=== PATIENT | female | born 1995 | race Two or more races ===

== ENCOUNTER 2024-09-28 13:36 | Emergency (ER) | payer MEDICAID, SELFPAY ==
[2024-09-28 13:37] VITALS: BMI 27.1
[2024-09-28 13:45] VITALS: BP 128/80; PULSE 149; RESP 16; TEMP 37.2; O2SAT 97
--- NOTE | 2024-09-28 13:47 | XR_ITS ---
Examination: CT soft tissue neck, with intravenous contrast. 2-D coronal reconstructions. 2-D sagittal reconstructions. Date and time of exam :September 28, 2024 at 1754 hrs. Indications: Difficulty swallowing with sore throat beginning 2 days ago. CTDI: vol (mGy):9.33 DLP: (mGycm):228 Technique: 1.25 mm axial sections of the neck of the obtained. Coronal and sagittal reconstructions have been obtained. Intravenous contrast administered 50 cc Isovue-370. Low dose protocols were performed. One or more of the following dose reduction techniques were used; automated exposure control, adjustment of the mA and/or KV according to patient size, use of iterative reconstruction technique. Findings: Bilateral significant soft tissue tonsillar prominence Early abscesses, 6 mm axial image 24 and 5 mm axial image 25 in the right tonsil The enlarged tonsils impinge upon the oropharyngeal airways Bilateral likely reactive carotid triangle lymph nodes, on the right side 26 mm, on the left side 21 mm, follow-up imaging suggested Enlarged thyroid lobes mildly impinging upon the trachea Normal epiglottis Impression: Bilateral significant soft tissue tonsillar enlargement impinging upon the oropharyngeal airway Small early right tonsillar abscesses, 6 mm, 5 mm as above
--- NOTE | 2024-09-28 13:48 | PD.EDRME ---
Rapid Medical Screening Exam E Arrival date/time: 09/28/24 13:36 29-year-old female with no known medical history presents to the emergency room with a chief complaint of a muffled voice, sore throat, congestion, swollen neck x 2 days. I have greeted and performed a focused initial assessment of this patient. A comprehensive ED assessment and evaluation of the patient, analysis of all test results, and completion of the medical decision making process will be conducted by additional ED providers. Chief Complaint: Dental/Oral/Throat Time Seen by Provider: 09/28/24 19:23 Vital signs: Vital Signs Temperature 98.9 F 09/28/24 13:45 Pulse Rate 149 H 09/28/24 13:45 Respiratory Rate 16 09/28/24 13:45 Blood Pressure 128/80 09/28/24 13:45 Pulse Oximetry (%) 97 09/28/24 13:45 Oxygen Delivery Method Room Air 09/28/24 13:45 Vital signs reviewed by provider: Yes
[2024-09-28 14:25] LABS: Lactate (Lactic Acid) 1.8 mMol/L (0.4-2.0)
[2024-09-28 14:30] LABS: Basophils % (Auto) 0 % (0-2.5); Eosinophils # (Auto) 0.1 Thou/mm3 (0.0-0.5); Eosinophils % (Auto) 1 % (0-10); Hematocrit 36.6 % (36.0-46.0); Hemoglobin 11.7 g/dL (12.0-16.0); Immature Granulocytes % (Auto) 0 % (0-0); Immature Granulocytes Auto 0.02 Thou/mm3 (0.00-0.00); Lymphocytes # (Auto) 2.8 Thou/mm3 (1.0-4.8); Lymphocytes % (Auto) 29 % (10-50); Mean Corpuscular Hemoglobin 25.2 pg (25.0-35.0); Mean Corpuscular Volume 79 fL (80-100); Monocytes # (Auto) 0.8 Thou/mm3 (0.0-0.8); Monocytes % (Auto) 9 % (0-12); Neutrophils % (Auto) 61 % (37-80); Nucleated Red Blood Cell % 0 /100 WBC (0); Platelet Count 347 Thou/mm3 (140-440); RDW Standard Deviation 35.4 fL (36.4-46.3); Red Blood Count 4.65 Miln/mm3 (4.00-5.20); White Blood Count 9.8 Thou/mm3 (3.6-11.0)
[2024-09-28 14:34] LABS: Strep A Rapid Negative (Negative)
[2024-09-28 15:01] LABS: HCG Qualitative,Urine Negative
[2024-09-28 15:05] LABS: Alanine Aminotransferase 22 U/L (10-49); Albumin, Serum 4.4 gm/dL (3.5-5.0); Albumin/Globulin Ratio 1.2 (1.2-2.2); Alkaline Phosphatase 114 U/L (46-116); Anion Gap 10 (7-16); Aspartate Amino Transferase 11 U/L (0-34); BUN/Creatinine Ratio 24 Ratio (12-20); Bilirubin,Total 0.3 mg/dL (0.3-1.2); Blood Urea Nitrogen 12 mg/dL (9-23); Calcium 9.9 mg/dL (8.3-10.6); Calcium (Corrected) 9.9 mg/dL (8.5-10.1); Carbon Dioxide 27.6 mMol/L (20.0-31.0); Chloride 104 mMol/L (98-107); Creatinine (Component) 0.5 mg/dL (0.6-1.3); Estimated Creatinine Clearance 138.9 mL/min (>60); Globulin 3.7 gm/dL (2.3-3.5); Glucose 104 mg/dL (74-106); Osmolality,Calculated 282 (275-295); Potassium 3.5 mMol/L (3.4-5.1); Procalcitonin 0.06 ng/ml (0.0-0.49); Sodium 142 mMol/L (136-145); Total Protein 8.1 gm/dL (5.7-8.2); eGFR > 60 See Note
[2024-09-28 17:14] VITALS: BP 116/75; PULSE 123; RESP 16; TEMP 36.7; O2SAT 99
[2024-09-28] MEDS: DEXAMETHASONE SOD PHOS INJ 10 MG/ML VIAL IVP (19:34)
[2024-09-28] MEDS: KETOROLAC INJ 30 MG/ML VIAL IVP (19:34)
[2024-09-28] MEDS: CLINDAMYCIN/NS 600 MG IVPB 600 MG/50 ML BAG 100 MG IV (19:38)
--- NOTE | 2024-09-28 20:03 | EDNOTE_ITS ---
ED Dental RME/HPI General Chief complaint: Dental/Oral/Throat Stated complaint: THROAT PAIN Time Seen by Provider: 09/28/24 19:23 Arrival date/time: 09/28/24 13:36 Limitations: no limitations RME / HPI RME / HPI Narrative: 09/28/24 13:36 29-year-old female with no known medical history presents to the emergency room with a chief complaint of a muffled voice, sore throat, congestion, swollen neck x 2 days. I have greeted and performed a focused initial assessment of this patient. A comprehensive ED assessment and evaluation of the patient, analysis of all test results, and completion of the medical decision making process will be conducted by additional ED providers. Dr. Parry's Main ED Evaluation: 29yo female presents to the ED for a chief complaint of a sore throat x 7 days. Patient states she has not been evaluated by anyone for this. She endorses having a muffled voice and feeling nauseous. She denies any fever, chills, cough, vomiting or any other associated symptoms. No known allergies. Patient also reports that when she was laying and sleeping that she was snoring and mother felt that she was stopped breathing and she felt her lips were slightly discolored. Related Data Home Medications ?Medication ?Instructions ?Recorded ?Confirmed desogestrel 0.15 mg-ethinyl 1 tab PO QDAY 08/08/20 08/08/20 estradiol 0.03 mg tablet (Enskyce) Allergies Allergy/AdvReac Type Severity Reaction Status Date / Time No Known Allergies Allergy Unknown Verified 09/28/24 13:39 Review of Systems Review of Systems Systems Reviewed: All systems reviewed, normal except as documented Past Medical History Past Medical History CARDIAC: Negative Cardiac Disorders or Congestive Heart Failure RESPIRATORY: Negative Chronic Obstructive Pulmonary Disease (COPD) or Asthma GENITOURINARY: Negative Renal Disease ENDOCRINE: Negative Diabetes Mellitus Type 1 or Diabetes Mellitus Type 2 HEMATOLOGIC: Negative Sickle Cell Disease Social History SMOKING STATUS: Never smoker ED Exam General Limitations: Present no limitations General appearance: Present alert, in no apparent distress and other (has a muffled voice) Head Head exam: Present atraumatic Eye Eye exam: Present normal appearance, PERRL and EOMI ENT ENT exam: Present mucous membranes moist and other (trismus, hot potato voice, right pharyngeal wall is red, uvula is midline, right tonsillar area is swollen) Neck Neck exam: Present full ROM, trachea midline, tenderness (to the right neck, no overlying erythema) and other (right external neck swelling and around the mandible area) Chest Chest inspection: Present normal inspection and symmetric chest wall rise Respiratory Respiratory exam: Present normal lung sounds bilaterally Cardiovascular Cardiovascular exam: Present regular rate, normal rhythm and normal heart sounds Abdominal Exam Abdominal exam: Present soft and normal bowel sounds Extremities Exam Extremities exam: Present normal inspection and full ROM Back Exam Back exam: Present normal inspection and full ROM Neurological Exam Neurological exam: Present alert, oriented X3 and CN II-XII intact Psychiatric Psychiatric exam: Present normal affect and normal mood Skin Skin exam: Present warm, dry, intact and normal color Course Course Course Narrative: 2127: Spoke with [facility] transfer [place], who declines the patient for transfer due to not having ENT available. 2305: Spoke with Dr. Coleman from [facility], who accepts the patient for transfer. Patient is agreeable to be transferred. Quality Measures none Orders Category Date Time Status CT Screening NOW Care 09/28/24 13:48 Active IV [Insert IV] NOW Care 09/28/24 19:09 Active Miscellaneous Nursing Order X1 Care 09/28/24 22:[address] soft tissue neck w con Stat Exams 09/28/24 13:47 Completed Blood Culture (Lab) Stat Lab 09/28/24 14:05 Received CBC Stat Lab 09/28/24 14:05 Completed CMP [Comprehensive Metabolic Panel] Stat Lab 09/28/24 14:05 Completed HCG Qualitative,Urine Stat Lab 09/28/24 14:20 Completed Lactic Acid [Lactate (Lactic Acid)] Stat Lab 09/28/24 14:05 Completed Procalcitonin Stat Lab 09/28/24 14:05 Completed Strep A Rapid Stat Lab 09/28/24 13:53 Completed Clindamycin/Ns 600 mg Ivpb [Cleocin/Ns Ivpb] Med 09/28/24 19:10 Discontinued 600 mg in 50 ml IV X1 Dexamethasone Inj [Decadron Inj] Med 09/28/24 19:09 Discontinued 10 mg IVP X1 ONE Ketorolac Inj [Toradol Inj] Med 09/28/24 19:09 Discontinued 30 mg IVP X1 ONE Sodium Chloride 0.9% 1000 ml [Ns] 1,000 ml Med 09/28/24 21:31 Discontinued IV 999 mls/hr Vital Signs Vital signs: Vital Signs Temperature 98.9 F 09/28/24 13:45 Pulse Rate 149 H 09/28/24 13:45 Respiratory Rate 16 09/28/24 13:45 Blood Pressure 128/80 09/28/24 13:45 Pulse Oximetry (%) 97 09/28/24 13:45 Oxygen Delivery Method Room Air 09/28/24 13:45 Dental / Oral MDM Narrative MDM Narrative:: 29-year-old female coming in with 1 week history of bilateral throat pain with increasing right neck swelling, muffled voice, obvious right cervical lymphadenopathy with evidence of pharyngeal erythema and bilateral tonsillar swelling. Patient has no stridor and can tolerate her saliva. Otherwise the patient is slightly tachycardic but is not febrile. Patient treated with Dexamethasone, Clinda, Toradol and IV fluids with slight improvement but continues with muffled voice. Suspect that her bilateral cervical lymphadenopathy is adding to the small abscesses that is noted on the right however per CT scan the patient has impingement of her airway. Discussed with ER doc at [facility] and at this time the patient does not have any any obvious large abscess for me to I&D and he request the patient be transferred and likely will need to be admitted for observation. Patient data External records reviewed:: [facility] previous records (Per chart review, patient was seen here on 10/08/23 for acute costochondritis.) Clinical information provided by:: patient Social determinants that could affect healthcare access:: none Patient has the following chronic illnesses:: none How is presenting disease/condition affected by chronic disease/condition?: no chronic disease Evaluation data The following diagnostics were reviewed and interpreted by me:: lab results and radiology exam(s) Lab and/or radiology exams considered but not ordered:: none Interpretation Summary: CBC is normal, CMP is normal, Lactic Acid is normal, Procalcitonin is normal, HCG is negative, Strep swab is negative, according to my interpretation. ----- [facility] Report Signed Patient: HAYDEN DAMON [facility]. Record#: [id number] Birthdate: 1995 Age/Sex: 29 / F Location: [facility] Attending Dr: Ordering Physician: Bunny Villanueva Date of Service: 09/28/24 Procedure(s): CT soft tissue neck w con Accession Number(s): [id number] cc: Leola Acevedo PA-C; Bunny Villanueva; Reyes Ryan MD~ Examination: CT soft tissue neck, with intravenous contrast. 2-D coronal reconstructions. 2-D sagittal reconstructions. Date and time of exam :September 28, 2024 at 1754 hrs. Indications: Difficulty swallowing with sore throat beginning 2 days ago. CTDI: vol (mGy):9.33 DLP: (mGycm):228 Technique: 1.25 mm axial sections of the neck of the obtained. Coronal and sagittal reconstructions have been obtained. Intravenous contrast administered 50 cc Isovue-370. Low dose protocols were performed. One or more of the following dose reduction techniques were used; automated exposure control, adjustment of the mA and/or KV according to patient size, use of iterative reconstruction technique. Findings: Bilateral significant soft tissue tonsillar prominence Early abscesses, 6 mm axial image 24 and 5 mm axial image 25 in the right tonsil The enlarged tonsils impinge upon the oropharyngeal airways Bilateral likely reactive carotid triangle lymph nodes, on the right side 26 mm, on the left side 21 mm, follow-up imaging suggested Enlarged thyroid lobes mildly impinging upon the trachea Normal epiglottis Impression: Bilateral significant soft tissue tonsillar enlargement impinging upon the oropharyngeal airway Small early right tonsillar abscesses, 6 mm, 5 mm as above Dictated By: Reyes Ryan MD Signed By: <Electronically signed by Reyes Ryan MD in [place]> 09/28/24 1817 Medications / Prescriptions Medications or Prescriptions considered but not ordered:: none Medication administrations:: Medication Administration History Discontinued Medications Dexamethasone Sodium Phosphate (Dexamethasone Sod Phos Inj 10 Mg/Ml Vial) 10 mg IVP X1 ONE; Protocol Stop: 09/28/24 19:10 Last Admin: 09/28/24 19:34 Dose: 10 mg Documented By: EMILY Clindamycin/Sodium Chloride (Cleocin/Ns Ivpb) 600 mg in 50 mls @ 100 mls/hr IV X1 ONE Stop: 09/28/24 19:39 Last Infusion: 09/28/24 20:19 Dose: Infused Documented By: Admin: 09/28/24 19:38 Dose: 100 mls/hr Documented By: EMILY Sodium Chloride (Ns) 1,000 mls @ 999 mls/hr IV .Q1H1M ONE Stop: 09/28/24 22:31 Last Infusion: 09/28/24 23:42 Dose: Infused Documented By: Admin: 09/28/24 22:35 Dose: 999 mls/hr Documented By: EMILY Ketorolac Tromethamine (Ketorolac Inj 30 Mg/Ml Vial) 30 mg IVP X1 ONE Stop: 09/28/24 19:10 Last Admin: 09/28/24 19:34 Dose: 30 mg Documented By: EMILY see above Consultations Consultation(s) initiated? (list below): No Diagnosis Dental Differential Diagnosis: other (cellulitis, abscess, lymphadenopathy, Strep) Most likely diagnosis given after review of the tests above:: see below Admission Indicated Admission indicated?: not indicated Admission Request Was there a request for admission?: No Disposition Plan Disposition Plan: Transfer Discharge Plan Plan Patient Disposition: [facility] Pt Being Transferred to: [facility] Service Needed for Transfer: Otolaryngology (ENT) Patient condition on transfer: Stable Prescriptions/Referrals Prescriptions/Med Rec: No Action desogestrel-ethinyl estradiol [Enskyce] 0.15-0.03 mg tablet 1 tab PO QDAY Referrals: Leola Acevedo PA-C [Primary Care Provider] - In 1 week Problem List Clinical Impression: Swelling of tonsil, Abscess of tonsil Patient/Caregiver Discharge Instructions Print Language: Georgian Stand Alone Forms: Deepika Award Info., Patient Portal Info Letter
--- NOTE | 2024-09-28 21:28 | PC.NURSE ---
DR. GREEN IS ON THE PHONE WITH [facility] AT THIS TIME.
--- NOTE | 2024-09-28 22:11 | PC.NURSE ---
I FAXED OVER PT INFORMATION TO [facility] AT THIS TIME.
[2024-09-28] MEDS: SODIUM CHLORIDE 0.9% 1000 ML 1,000 ML 999 ML IV (22:35)
[2024-09-28 22:40] VITALS: BP 113/73; PULSE 102; RESP 16; TEMP 36.6; O2SAT 99
--- NOTE | 2024-09-28 23:08 | PC.NURSE ---
DR. GREEN IS ON THE PHONE WITH ONE OF THE PROVIDERS FROM [facility] AT THIS TIME.
--- NOTE | 2024-09-28 23:11 | PC.NURSE ---
ACCEPTED [facility] ER TO ER DR HOWE REPORT #[id number]
--- NOTE | 2024-09-28 23:54 | PC.NURSE ---
2355, spoke to f[facility], er to er, pt accepted by , report # [id number]
[2024-09-29 00:29] VITALS: BP 122/77; PULSE 98; RESP 16; TEMP 36.8; O2SAT 99
--- NOTE | 2024-09-29 00:41 | PC.NURSE ---
Report given to Amiyoan at this time.
== END 2024-09-29 00:55 | disposition short-term general hospital (02) ==
PROVIDERS: Nurse Practitioner Family; Emergency Provider Emergency Medicine; PCP Physician Assistant
DX: J36 Peritonsillar abscess (principal)
CPT/HCPCS: 36415; 70491; 80053; 81025; 83605; 84145; 85025; 87040; 87651; 96360; 96365; 96375; 99285; A4649; J1100; J1885; J7030; Q9967; S0077; J0737

== ENCOUNTER 2025-05-21 11:52 | Observation (INO) | payer MEDICAID, SELFPAY ==
[2025-05-21] VITALS (9 sets, daily range): BP systolic 105–152; BP diastolic 61–82; PULSE 93–140; RESP 16–21; TEMP 37.2; O2SAT 96–99; BMI 26.4
--- NOTE | 2025-05-21 12:37 | PD.EDSEIZ ---
ED Seizures RME/HPI General Stated Complaint: SEIZURE Arrival date/time: 05/21/25 11:52 Related Data Home Medications ?Medication ?Instructions ?Recorded ?Confirmed desogestrel 0.15 mg-ethinyl 1 tab PO QDAY 08/08/20 08/08/20 estradiol 0.03 mg tablet (Enskyce) Allergies Allergy/AdvReac Type Severity Reaction Status Date / Time No Known Allergies Allergy Unknown Verified 09/28/24 13:39 Course Vital Signs Vital signs: Vital Signs Temperature 98.9 F 05/21/25 12:06 Pulse Rate 128 H 05/21/25 12:06 Respiratory Rate 16 05/21/25 12:06 Blood Pressure 122/79 05/21/25 12:06 Pulse Oximetry (%) 96 05/21/25 12:06 Oxygen Delivery Method Room Air 05/21/25 12:06 Discharge Plan Prescriptions/Referrals Prescriptions/Med Rec: No Action desogestrel-ethinyl estradiol [Enskyce] 0.15-0.03 mg tablet 1 tab PO QDAY Patient/Caregiver Discharge Instructions Print Language: Sami
--- NOTE | 2025-05-21 13:04 | EKG_ITS ---
[facility] Test Date: 2025-05-21 Pat Name: HAYDEN DAMON Department: Room: - Gender: Female [employer]: : 1995 Requested By: ED Temporary Provider Order Number: [id number] Reading MD: ED Temporary Provider Measurements Intervals [place] Rate: 116 P: 65 MI: 123 QRS: 68 QRSD: 77 T: 37 QT: 329 QTc: 458 Interpretive Statements SINUS TACHYCARDIA ABNORMAL RHYTHM ECG Compared to ECG 10/08/2023 04:51:54 Short MI interval no longer present /store/S0/[id number].pdf
--- NOTE | 2025-05-21 13:33 | XR_ITS ---
Examination: CT brain head without contrast. 2-D sagittal coronal reconstructions Date and time of exam:May 21, 2025, 1537 hours INDICATIONS: Onset seizures today, patient fell with injury to the head CTDI: vol (mGy):44 DLP: (mGycm):807 Technique: Multiple CT axial sections of the brain have been obtained, 5 mm slice thickness. Contrast has not been administered. 2-D sagittal, coronal reconstructions have been obtained Low dose protocols were performed. One or more of the following dose reduction techniques were used; automated exposure control, adjustment of the mA and/or KV according to patient size, use of iterative reconstruction technique. Findings: No significant ventricular enlargement. Intra-axial or extra-axial hemorrhage density is not seen. No mass effect or midline shift Basal cisterns are not remarkable. Fourth ventricle is midline. Cranial vault intact. Impression: Negative for acute hemorrhage, mass effect or midline shift Consider elective brain MRI follow-up, pre and postcontrast, seizure protocol
--- NOTE | 2025-05-21 13:35 | PD.EDSEIZ ---
ED Seizures RME/HPI General Chief Complaint: Seizure Stated Complaint: SEIZURE Time Seen by Provider: 05/21/25 13:33 Source: patient Arrival date/time: 05/21/25 11:52 30-year-old female with no known medical history presents to the emergency room with a chief complaint of a syncopal episode and seizure-like activity that occurred today at work. Mode of arrival: ambulatory Limitations: no limitations Related Data Home Medications ?Medication ?Instructions ?Recorded ?Confirmed desogestrel 0.15 mg-ethinyl 1 tab PO QDAY 08/08/20 08/08/20 estradiol 0.03 mg tablet (Enskyce) Allergies Allergy/AdvReac Type Severity Reaction Status Date / Time No Known Allergies Allergy Unknown Verified 05/21/25 13:05 Review of Systems Review of Systems Systems Reviewed: All systems reviewed, normal except as documented Constitutional Constitutional: Reports system reviewed and no additional complaints, except as documented, Denies fatigue, Denies fever(s), Denies headache(s) and Reports weakness Eyes Eyes: Reports system reviewed and no additional complaints, except as documented, Denies blurry vision and Denies change in vision ENT Ears, Nose, Mouth, and Throat: Reports system reviewed and no additional complaints, except as documented, Denies otalgia, Denies headache(s), Denies nasal congestion, Denies throat swelling and Denies vertigo Cardiovascular Cardiovascular: Reports system reviewed and no additional complaints, except as documented, Denies chest pain, Denies dyspnea, Denies dyspnea on exertion, Reports irregular heart rhythm, Reports palpitations and Reports rapid heart rate Respiratory Respiratory: Reports system reviewed and no additional complaints, except as documented, Denies chest congestion, Denies cough, Denies dyspnea, Denies dyspnea on exertion and Denies wheezing Gastrointestinal Gastrointestinal: Reports system reviewed and no additional complaints, except as documented, Denies abdominal pain, Denies cramping, Denies nausea and Denies vomiting Genitourinary Genitourinary: Reports system reviewed and no additional complaints, except as documented Musculoskeletal Musculoskeletal: Reports system reviewed and no additional complaints, except as documented and Denies back pain Integumentary/Breasts Skin/Breast: Reports system reviewed and no additional complaints, except as documented and Denies wounds Neurologic Neurologic: Reports system reviewed and no additional complaints, except as documented, Denies confusion, Denies headache(s), Denies lack of coordination, Denies vertigo and Reports weakness Psychiatric Psychiatric: Reports system reviewed and no additional complaints, except as documented, Denies anxiety, Denies confusion, Denies depression, Denies paranoia, Denies suicidal ideation and Denies tactile hallucinations Endocrine Endocrine: Reports system reviewed and no additional complaints, except as documented, Denies fatigue and Reports palpitations Hematologic/Lymphatic Hematologic/Lymphatic: Reports system reviewed and no additional complaints, except as documented and Denies lymphadenopathy Allergic/Immunologic Allergic/Immunologic: Reports system reviewed and no additional complaints, except as documented, Denies throat swelling, Denies urticaria and Denies wheezing ED Exam General Limitations: Present no limitations General appearance: Present alert and in no apparent distress Head Head exam: Present atraumatic, normocephalic and normal inspection Expanded Head Exam Head exam physical: Absent laceration, abrasion, contusion, hematoma, raccoon eyes, Ashraf's sign, tenderness of temporal artery, CSF rhinorrhea or CSF otorrhea Eye Eye exam: Present normal appearance, PERRL and EOMI ENT ENT exam: Present normal exam, normal oropharynx and mucous membranes moist Neck Neck exam: Present normal inspection, full ROM, trachea midline and tenderness Chest Chest inspection: Present normal inspection and symmetric chest wall rise Respiratory Respiratory exam: Present normal lung sounds bilaterally; Absent respiratory distress, wheezes, stridor, accessory muscle use or prolonged expiratory phase Cardiovascular Cardiovascular exam: Present regular rate, normal rhythm, tachycardia, normal heart sounds, +S1 and +S2; Absent bradycardia, irregular rhythm, systolic murmur, diastolic murmur, rubs, gallop, clicks or JVD Abdominal Exam Abdominal exam: Present soft and normal bowel sounds; Absent tenderness Extremities Exam Extremities exam: Present normal inspection and full ROM Back Exam Back exam: Present normal inspection and full ROM Neurological Exam Neurological exam: Present alert, oriented X3 and CN II-XII intact Psychiatric Psychiatric exam: Present normal affect and normal mood Skin Skin exam: Present warm, dry, intact and normal color Course Quality Measures none Orders Category Date Time Status COVID-19 Screening Questionnaire NOW Care 05/21/25 17:34 Active Decision to Admit X1 Care 05/21/25 17:34 Active EKG (ED ONLY) *Do not use* NOW Care 05/21/25 13:[address] cervical spine wo con Stat Exams 05/21/25 18:[address] head/brain wo con Stat Exams 05/21/25 13:33 Completed EKG (ED Only) Stat Exams 05/21/25 13:04 Draft Alcohol, Blood Medical Stat Lab 05/21/25 13:12 Completed B-Type Natriuretic Peptide Stat Lab 05/21/25 13:12 Completed CBC Stat Lab 05/21/25 13:12 Completed Comprehensive Metabolic Panel Stat Lab 05/21/25 13:12 Completed Drug Screen,Urine Stat Lab 05/21/25 15:30 Completed Free T4 (Free Thyroxine) Stat Lab 05/21/25 13:12 Completed HCG Qualitative,Urine Stat Lab 05/21/25 15:30 Completed Magnesium Stat Lab 05/21/25 13:12 Completed Partial Thromboplastin Time Stat Lab 05/21/25 13:12 Completed Prothrombin Time with INR Stat Lab 05/21/25 13:12 Completed Thyroid Stimulating Hormone Stat Lab 05/21/25 13:12 Completed Troponin I Stat Lab 05/21/25 13:12 Completed Urinalysis, C/S if Indicated Stat Lab 05/21/25 15:30 Completed Urine Culture Stat Lab 05/21/25 15:30 Received Acetaminophen Tab [Tylenol Tab] Med 05/21/25 15:04 Discontinued 1,000 mg PO X1 ONE Magnesium Oxide [Mag-Ox 400] Med 05/21/25 16:28 Discontinued 400 mg PO X1 ONE Sodium Chloride 0.9% 1000 ml [Ns] 1,000 ml Med 05/21/25 15:48 Discontinued IV 999 mls/hr Vital Signs Vital signs: Vital Signs Temperature 98.9 F 05/21/25 12:06 Pulse Rate 128 H 05/21/25 12:06 Respiratory Rate 16 05/21/25 12:06 Blood Pressure 122/79 05/21/25 12:06 Pulse Oximetry (%) 96 05/21/25 12:06 Oxygen Delivery Method Room Air 05/21/25 12:06 O2 saturation 96% within normal limits Seizure MDM Narrative MDM Narrative:: 30-year-old female with no known medical history presents to the emergency room with a chief complaint of a syncopal episode and seizure-like activity that occurred today at work. Patient is hemodynamically stable and in no apparent distress. Patient is tachycardic at 128 bpm but is asymptomatic Physical examination shows a little neurological exam. The patient is a GCS of 15 alert and oriented x 3 pupils are PERRLA EOMs are intact. The patient states this is never happened before she has never had a syncopal episode at work. Patient states that her coworkers stated that she was convulsing on the floor for over 2 minutes before EMS arrived. CBC CMP were completed and were negative for any acute findings. EKG troponin were within normal limits. TSH and T4 were done and showed hyperthyroidism. I called the hospitalist team on-call and the patient will be admitted for hyperthyroidism Patient data External records reviewed:: [facility] previous records Clinical information provided by:: patient Social determinants that could affect healthcare access:: none Patient has the following chronic illnesses:: No chronic illness How is presenting disease/condition affected by chronic disease/condition?: no chronic disease Evaluation data The following diagnostics were reviewed and interpreted by me:: lab results and radiology exam(s) Lab and/or radiology exams considered but not ordered:: Labs and radiology exams considered and ordered Interpretation Summary: CT of the head and brain-thoracicFindings: No significant ventricular enlargement. Intra-axial or extra-axial hemorrhage density is not seen. No mass effect or midline shift Basal cisterns are not remarkable. Fourth ventricle is midline. Cranial vault intact. Impression: Negative for acute hemorrhage, mass effect or midline shift Consider elective brain MRI follow-up, pre and postcontrast, seizure protocol Medications / Prescriptions Medications or Prescriptions considered but not ordered:: Medication given Medication administrations:: Medication Administration History Acetaminophen (Acetaminophen 325 Mg Tablet) 650 mg PO Q6H PRN PRN Reason: Fever >101.5 Stop: 06/20/25 18:35 Sodium Chloride (Ns) 1,000 mls @ 75 mls/hr IV .[id number] [facility] Stop: 05/22/25 08:04 Methimazole (Methimazole 5 Mg Tablet) 5 mg PO BID [facility] Stop: 06/20/25 20:59 Ondansetron HCl (Ondansetron Inj 2 Mg/Ml Inj 2 Ml) 4 mg IVP Q6H PRN; Protocol PRN Reason: NAUSEA OR VOMITING Stop: 06/20/25 18:35 Propranolol HCl (Propranolol 10 Mg Tablet) 10 mg PO TID ANDERS Stop: 06/20/25 21:59 Discontinued Medications Acetaminophen (Acetaminophen 325 Mg Tablet) 1,000 mg PO X1 ONE Stop: 05/21/25 15:05 Last Admin: 05/21/25 15:58 Dose: 1,000 mg Documented By: MANUEL Sodium Chloride (Ns) 1,000 mls @ 999 mls/hr IV .Q1H1M ONE Stop: 05/21/25 16:48 Last Infusion: 05/21/25 17:00 Dose: Infused Documented By: Admin: 05/21/25 15:59 Dose: 999 mls/hr Documented By: MANUEL Magnesium Oxide (Magnesium Oxide 400 Mg Tablet) 400 mg PO X1 ONE Stop: 05/21/25 16:29 Last Admin: 05/21/25 17:52 Dose: 400 mg Documented By: MANUEL Medication given Consultations Consultation(s) initiated? (list below): No Diagnosis Seizure Differential Diagnosis: generalized seizure, new onset seizure, epileptic seizure and other (Hypothyroidism) Most likely diagnosis given after review of the tests above:: Hypothyroidism Admission Indicated Admission indicated?: indicated Admission Request Was there a request for admission?: Yes Admission Attestation Admission request attestation: Discussed case with [dr alejandro] from Hospitalist service regarding admission. Discussed patients ED course, exam findings, labs, and radiology results. The Hospitalist [agrees,declines] to accept the patient for admission. Disposition Plan Disposition Plan: Discharge Discharge Attestation Discharge Attestation: The patient and all family members were given an opportunity to ask questions and understood the discharge instructions. Discharge instructions specifically effects, indications for sooner follow up or return to the emergency department, and the expected course of current diagnosis. Patient condition: Stable Discharge Plan Plan Patient Disposition: Admit Acute Care w/in Hospital Discharge Disposition comment: Stable Problem List Clinical Impression: Hyperthyroidism
[2025-05-21 14:09] LABS: Basophils # (Auto) 0.0 Thou/mm3 (0.0-0.2); Basophils % (Auto) 0 % (0-2.5); Eosinophils # (Auto) 0.0 Thou/mm3 (0.0-0.5); Eosinophils % (Auto) 0 % (0-10); Hematocrit 34.0 % (36.0-46.0); Hemoglobin 11.3 g/dL (12.0-16.0); Immature Granulocytes Auto 0.03 Thou/mm3 (0.00-0.00); Lymphocytes # (Auto) 1.9 Thou/mm3 (1.0-4.8); Lymphocytes % (Auto) 20 % (10-50); Mean Corpuscular HGB Conc 33.2 g/dl (31.0-37.0); Mean Corpuscular Hemoglobin 24.9 pg (25.0-35.0); Mean Corpuscular Volume 75 fL (80-100); Monocytes # (Auto) 0.6 Thou/mm3 (0.0-0.8); Monocytes % (Auto) 7 % (0-12); Neutrophils # (Auto) 6.6 Thou/mm3 (1.8-7.7); Neutrophils % (Auto) 72 % (37-80); Nucleated Red Blood Cell # 0.00 Thou/mm3 (0.00-0.00); Nucleated Red Blood Cell % 0 /100 WBC (0); Platelet Count 290 Thou/mm3 (140-440); RDW Standard Deviation 34.9 fL (36.4-46.3); Red Blood Count 4.53 Miln/mm3 (4.00-5.20); White Blood Count 9.2 Thou/mm3 (3.6-11.0)
[2025-05-21 14:24] LABS: B-Type Natriuretic Peptide 25 pg/mL (0-100)
[2025-05-21 14:25] LABS: INR 1.1 (0.9-1.3); Partial Thromboplastin Time 27.0 Seconds (22.0-36.0); Prothrombin Time 11.9 Seconds (9.0-12.2)
[2025-05-21 14:38] LABS: Alanine Aminotransferase 11 U/L (10-49); Albumin, Serum 3.7 gm/dL (3.5-5.0); Albumin/Globulin Ratio 1.3 (1.2-2.2); Alcohol, Blood Medical < 3.0 mg/dL (0-10.0); Alkaline Phosphatase 121 U/L (46-116); Anion Gap 12 (7-16); Aspartate Amino Transferase 16 U/L (0-34); BUN/Creatinine Ratio 23 Ratio (12-20); Bilirubin,Total 0.2 mg/dL (0.3-1.2); Blood Urea Nitrogen 7 mg/dL (9-23); Calcium 9.2 mg/dL (8.3-10.6); Calcium (Corrected) 9.4 mg/dL (8.5-10.1); Carbon Dioxide 22.3 mMol/L (20.0-31.0); Chloride 106 mMol/L (98-107); Creatinine (Component) 0.3 mg/dL (0.6-1.3); Estimated Creatinine Clearance 236.2 mL/min (>60); Globulin 2.8 gm/dL (2.3-3.5); Glucose 84 mg/dL (74-106); Magnesium 1.5 mg/dL (1.6-2.6); Osmolality,Calculated 276 (275-295); Potassium 3.6 mMol/L (3.4-5.1); Sodium 140 mMol/L (136-145); Total Protein 6.5 gm/dL (5.7-8.2); Troponin I < 0.020 ng/mL (0.0-0.045); eGFR > 60 See Note
[2025-05-21 15:56] LABS: Collection Type, Urine Clean Catch
[2025-05-21] MEDS: ACETAMINOPHEN 325 MG TABLET 1000 MG PO (15:58)
[2025-05-21] MEDS: SODIUM CHLORIDE 0.9% 1000 ML 1,000 ML 999 ML IV (15:59)
[2025-05-21 16:05] LABS: Bacteria,Urine Rare; Bilirubin,Urine Negative (Negative); Blood,Urine 3+ (Negative); Clarity,Urine Turbid (Clear/Hazy); Color,Urine Lt-Yellow (Lt Yel-Yel); Glucose, Urine Negative (Negative); Hyaline Casts,Urine < 1 /hpf (0-1); Ketones,Urine Negative (Negative); Leukocyte Esterase,Urine Positive (Negative); Nitrite,Urine Negative (Negative); PH,Urine 6.0 (5.0-7.0); Protein,Urine Negative (Neg - Trace); RBC,Urine 7 /hpf (0-3); Specific Gravity,Urine 1.011 (1.001-1.035); Squamous Epithelial Cell,Urine 8 /hpf (0-5); Urobilinogen,Urine Negative mg/dL (0.0-1.0); WBC,Urine 25 /hpf (0-5)
[2025-05-21 16:10] LABS: Amphetamine/Methamp Scrn,U Negative (Negative); Barbiturate Screen,Urine Negative (Negative); Benzodiazepines Screen,Urine Negative (Negative); Benzoylecgonine Screen, Ur Negative (Negative); Fentanyl Screen,Urine Negative (Negative); Opiate Screen,Urine Negative (Negative); THC Screen,Urine Negative (Negative)
[2025-05-21 16:14] LABS: HCG Qualitative,Urine Negative
[2025-05-21 16:16] LABS: Culture Indicated,Urine Yes
[2025-05-21 16:50] LABS: Free T4 (Free Thyroxine) 6.71 ng/dL (0.89-1.76); Thyroid Stimulating Hormone < 0.01 uIU/mL (0.55-4.78)
[2025-05-21] MEDS: MAGNESIUM OXIDE 400 MG TABLET PO (17:52)
--- NOTE | 2025-05-21 18:15 | XR_ITS ---
Examination: CT cervical spine without contrast 2-D sagittal reconstructions 2-D coronal reconstructions 3-D reconstructions. Exam date and time:May 21, 2025, 1912 hours, comparison September 28, 2024 INDICATIONS: Seizure today with injury to the neck, neck pain CTDI:vol (mGy) 14.3 DLP: (mGycm) 282 Technique: Multiple 2 mm axial sections of the cervical spine have been obtained. The coronal and sagittal reconstructions have been obtained. 3-D reconstructions have been obtained. Low dose protocols were performed. One or more of the following dose reduction techniques were used; automated exposure control, adjustment of the mA and/or KV according to patient size, use of iterative reconstruction technique. Findings: Axial sections demonstrate intact base of the skull. C1 exhibit satisfactory relationship to the odontoid. No acute cervical vertebral body fracture seen. Alignment posterior spinous processes satisfactory. Impression: No acute cervical fracture.
--- NOTE | 2025-05-21 18:39 | XR_ITS ---
Examination: AP chest single view TECHNIQUE: Upright AP chest single view Date and time: May 21, 2025, 1844 hours, comparison October 08, 2023 INDICATIONS: Shortness of breath today FINDINGS: Normal heart size taking into account AP projection. No pneumonia or pulmonary edema. Intact osseous structures IMPRESSION: No active disease.
--- NOTE | 2025-05-21 18:40 | XR_ITS ---
Examination: Thyroid sonography complete TECHNIQUE: Grayscale sonographic images thyroid lobes Date and time: May 21, 2025, 1849 hours INDICATIONS: Elevated thyroid panel on laboratory examination today FINDINGS: Right thyroid 6.1 cm Left thyroid 4.7 cm Heterogeneous echogenicity throughout the thyroid lobes with increased vascularity although no discrete nodules IMPRESSION: Right thyromegaly Thyroiditis pattern Consider correlation with oral I-123 thyroid uptake and scan
--- NOTE | 2025-05-21 18:48 | PC.NURSE ---
PATIENT CAME IN TO ED FOR SEIZURE THAT OCCURRED TODAY AT WORK. PATIENT WAS WORKING AND FELL BACK AND STARTED HAVING WITNESSED SEIZURE. PATIENT'S SEIZURE LASTED ABOUT 2 MINUTES PER [employer]. PATIENT HAS BEEN ALERT AND ORIENTED X4, VITALS ARE STABLE, PATIENT'S HEART RATE HAS REMAINED TACHYCARDIC 100-130S. PATIENT DENIES CHEST PAIN OR SHORTNESS OF BREATH. PATIENT DOES NOT HAVE HISTORY OF SEIZURES. PATIENT'S LABS SHOWED HYPERTHYROID TODAY. NO PREVIOUS HISTORY OF HYPERTHYROID. PATIENT BEING ADMITTED TO HOSPITAL FOR NEW ONSET HYPERTHYROID
--- NOTE | 2025-05-21 18:50 | ESHP_ITS ---
<Statement entered by Larissa Lee MD - 05/22/25 17:38> Patient was seen and examined at bedside agree with assessment and plan of this note. - Patient's plan and care discussed with my attending, Dr. Apryl Lee MD Internal Medicine PGY-3 Documentation for date of: 05/21/25 HPI History of Present Illness History of present illness: Tg Lerma is a 30 year old female with no significant past medical history presented to the ED after having a syncopal episode with possible seizure. 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 Patient was told by that it appeared that she was having a seizure. Patient endorsed tongue pain, denied urinating underwear. Patient did fall to the ground with positive headstrike to the back of her head with minimal pain, but endorses tenderness and stiffness. Patient states this has never happened before. Patient denies being and endorses being on control for a few years. Patient endorses around 90 pound weight loss in the last year. Endorses urinary frequency, occasional diarrhea, dizziness, fatigue, diaphoresis, anxiety and feeling of fainting when standing. Denies chest pain, shortness of breath, abdominal pain, n/v, dysuria, hematuria, melena, hematochezia, heavy periods. Past Medical History: none Family History: Mother T2DM Surgical History: Possible tonsillectomy? Social History: Occasional marijuana/alcohol; denies tobaco or other recreational drugs; lives with mother; works at [employer] Current Medications: Control (enskyce? f/u med rec) Allergies: No known drug allergies ED Course: -Initial vitals were 98.9 temperature, 128 hr, 16 rr, 122/79 bp, 96% O2 on RA -Labs significant for hgb 11.3, Cr 0.3, Mag 1.5, TSH < 0.01, FT4 6.71, Alk Phos 121; UA turbid 3+ blood, LE positive, 7 RBC's, 25 WBC's -Imaging included CT Head that was negative & EKG showing Sinus Tachy -In the ED, patient was given 1L IV NS bolus, Tylenol 1,000 mg x1, MagOxide 400 mg x1 -Patient was admitted for observation given seizure. Review of Systems Review of systems otherwise negative except what is mentioned above. Exam Vital Signs Temp Pulse Resp BP Pulse Ox O2 Del Method 99.0 F 101 H 18 152/72 H 98 Room Air 05/21/25 15:52 05/21/25 18:00 05/21/25 15:52 05/21/25 18:00 05/21/25 18:00 05/21/25 15:52 Narrative Exam General: Anxious appearing; A&Ox3 Skin: Bilateral Lower Extremity bug bites/abrasions; Warm, dry, intact, no obvious rash. HENT: Posterior Head/Neck tenderness with small abrasion on occipital region; EOMI, not icteric. External ears normal. No rhinorrhea. Moist mucous membranes. Ant neck/thyroid region hard to palpation, non-tender Cardiovascular: Tachycardic, regular rhythm, no murmur, +S1/S2. Respiratory: Lungs CTAB GI: Soft, nontender, non-distended. No guarding or rebound tenderness. Extremities: no edema, no cyanosis, no clubbing. Extremity pulses present Neuro: tremors on outstretched arm bilaterally; No focal deficits observed. Conversant, moving all extremities. Psychiatric: Cooperative, appropriate affect. Results: Labs 05/21/25 13:12 05/21/25 13:12 Labs: Short CBC 05/21/25 Range/Units 13:12 WBC 9.2 (3.6-11.0) Thou/mm3 Hgb 11.3 L (12.0-16.0) g/dL Hct 34.0 L (36.0-46.0) % Plt Count 290 (140-440) Thou/mm3 BMP 05/21/25 13:12 Sodium 140 Potassium 3.6 Chloride 106 Carbon Dioxide 22.3 BUN 7 L Creatinine 0.3 L Glucose 84 Calcium 9.2 Cardiac Enzymes 05/21/25 Range/Units 13:12 Troponin I < 0.020 (0.0-0.045) ng/mL Liver Function 05/21/25 Range/Units 13:12 Total Bilirubin 0.2 L (0.3-1.2) mg/dL AST 16 (0-34) U/L ALT 11 (10-49) U/L Alkaline Phosphatase 121 H (46-116) U/L Albumin 3.7 (3.5-5.0) gm/dL Urine 05/21/25 Range/Units 15:30 Urine Color Lt-Yellow (Lt Yel-Yel) Urine Clarity Turbid A (Clear/Hazy) Urine pH 6.0 (5.0-7.0) Ur Specific [place] 1.011 (1.001-1.035) Urine Protein Negative (Neg - Trace) Urine Glucose (UA) Negative (Negative) Quality Measures Quality Measures VTE prophylaxis Medications Home Medications and Allergies Home Medications ?Medication ?Instructions ?Recorded ?Confirmed ?Type desogestrel 0.15 mg-ethinyl 1 tab PO QDAY 08/08/20 History estradiol 0.03 mg tablet (Enskyce) Allergies Allergy/AdvReac Type Severity Reaction Status Date / Time No Known Allergies Allergy Unknown Verified 05/21/25 13:05 Visit Medications Acetaminophen (Acetaminophen 325 Mg Tablet) 650 mg PO Q6H PRN PRN Reason: Fever >101.5 Stop: 06/20/25 18:35 Sodium Chloride (Ns) 1,000 mls @ 75 mls/hr IV .[id number] [facility] Stop: 05/22/25 08:04 Methimazole (Methimazole 5 Mg Tablet) 5 mg PO BID [facility] Stop: 06/20/25 20:59 Ondansetron HCl (Ondansetron Inj 2 Mg/Ml Inj 2 Ml) 4 mg IVP Q6H PRN; Protocol PRN Reason: NAUSEA OR VOMITING Stop: 06/20/25 18:35 Propranolol HCl (Propranolol 10 Mg Tablet) 10 mg PO TID ANDERS Stop: 06/20/25 21:59 Discontinued Medications Acetaminophen (Acetaminophen 325 Mg Tablet) 1,000 mg PO X1 ONE Stop: 05/21/25 15:05 Last Admin: 05/21/25 15:58 Dose: 1,000 mg Sodium Chloride (Ns) 1,000 mls @ 999 mls/hr IV .Q1H1M ONE Stop: 05/21/25 16:48 Last Infusion: 05/21/25 17:00 Dose: Infused Magnesium Oxide (Magnesium Oxide 400 Mg Tablet) 400 mg PO X1 ONE Stop: 05/21/25 16:29 Last Admin: 05/21/25 17:52 Dose: 400 mg Assessment & Plan Plan Tg Lerma is a 30 year old female with no significant past medical history presented to the ED after having a syncopal episode with possible seizure. Patient was admitted for observation given seizure. #Seizure Etiology unknown, no suspecting trigger for seizure. Possibly due to stress, dehydration, hormonal changes or combination with something else as well. Patient endorsed tongue pain post event, no obvious tongue laceration was seen. Patient endorses mild head pain with neck tenderness and stiffness. Patient denies ever happening before, denies family history of seizures. CT Head negative. Patient given Tylenol 1,000 mg in ED. -Consulted Neurology, appreciate recs -Ordered CT C-spine w/o contrast -Seizure precautions prn with bed rest #hyperthyroidism Newly discovered hyperthyroidism. Patient endorses feeling anxious, sweaty, fatigued sometimes. Endorses feeling light-headed occasionally when standing up from sitting position. Patient endorses around 90 pound weight loss in the last year. On exam, patient was anxious appearing, had tremors on outstretched arm bilaterally, had hard thyroid area to palpation, was tachycardic, mildly elevated blood pressure. Sinus Tachy on EKG. Labs showed TSH <0.01, FT4 6.71. Given 1 L bolus in ED. -Ordered US thyroid -Ordered Thyroglobulin Panel, FT4, TSH -Started NS IV maint fluids @75mls/hr -Ordered Propranolol 10 mg po tid -Ordered Methimazole 5 mg po bid #microcytic anemia Likely due to BOUCHRA vs insuffienct PO intake. Patient endorses being fatigued often. Denies having heavy periods; has been on control for ~3 years. Hgb on admission 11.3 with MCV 75. -Ordered Iron IV q other day -Will follow cbc Hospital Management: Disposition: Tele Diet: Regular GI Prophylaxis: n/a Bowel Prophylaxis: n/a DVT Prophylaxis: SCD's CODE STATUS: FULL CODE Patient plan of care was discussed with the attending physician, Dr. Pink & senior resident Dr. Rosa Erickson MD PGY-1 Attending Provider Attestation/Addendum I reviewed labs, imaging, EKG, home medications and prior available records. Face to face evaluation was performed by me. I have personally examined the patient and discussed assessment and plan with the IM team. I reviewed the resident note and agree with the plan with exceptions as below. Syncope Sinus tachycardia Uncontrolled hypothyroidism Microcytic anemia Started propranolol Started methimazole Monitor heart rate Ordered ultrasound of the thyroid Ordered echocardiogram Started ferrous sulfate
[2025-05-21] MEDS: SODIUM CHLORIDE 0.9% 1000 ML 1,000 ML 75 ML IV (19:55)
[2025-05-21] MEDS: PROPRANOLOL 10 MG TABLET PO (20:22)
[2025-05-21] MEDS: METHIMAZOLE 5 MG TABLET PO (20:22)
[2025-05-21] MEDS: IRON SUCROSE CPLX INJ 20 MG/ML VIAL 5 ML 200 MG IVP (21:41)
--- NOTE | 2025-05-21 23:38 | PD.VPROG1 ---
Telemedicine visit statement This visit was conducted with the use of phone was obtained on 05/21/25 at 2338. Documentation for date of: 05/21/25 Subjective Subjective Interval history: Patient is in telemetry today, no new symptoms after admission, no sz after coming to the floor. Virtual exam Vital Signs Temp Pulse Resp BP Pulse Ox O2 Del Method 99.0 F 93 21 H 108/61 99 Room Air 05/21/25 15:52 05/21/25 23:00 05/21/25 23:00 05/21/25 23:00 05/21/25 23:00 05/21/25 23:00 Objective Labs 05/21/25 13:12 05/21/25 13:12 Labs: Laboratory Results - last 24 hr 05/21/25 05/21/25 13:12 15:30 WBC 9.2 RBC 4.53 Hgb 11.3 L Hct 34.0 L MCV 75 L MCH 24.9 L MCHC 33.2 RDW Std Deviation 34.9 L Plt Count 290 Neut % (Auto) 72 Lymph % (Auto) 20 [place] % (Auto) 7 Eos % (Auto) 0 Baso % (Auto) 0 Neut # (Auto) 6.6 Lymph # (Auto) 1.9 [place] # (Auto) 0.6 Eos # (Auto) 0.0 Baso # (Auto) 0.0 Immature Gran # (Auto) 0.03 H Absolute Nucleated RBC 0.00 Immature Gran % 0 Nucleated RBC % 0 PT 11.9 INR 1.1 APTT 27.0 Sodium 140 Potassium 3.6 Chloride 106 Carbon Dioxide 22.3 Anion Gap 12 BUN 7 L Creatinine 0.3 L Estim Creat Clear Calc 236.2 eGFR > 60 BUN/Creatinine Ratio 23 H Glucose 84 Calculated Osmolality 276 Calcium 9.2 Corrected Calcium 9.4 Magnesium 1.5 L Total Bilirubin 0.2 L AST 16 ALT 11 Alkaline Phosphatase 121 H Troponin I < 0.020 B-Natriuretic Peptide 25 Total Protein 6.5 Albumin 3.7 Globulin 2.8 Albumin/Globulin Ratio 1.3 TSH < 0.01 L* Free T4 6.71 H Ur Collection Type Clean Catch Urine Color Lt-Yellow Urine Clarity Turbid A Urine pH 6.0 Ur Specific [place] 1.011 Urine Protein Negative Urine Glucose (UA) Negative Urine Ketones Negative Urine Blood 3+ A Urine Nitrite Negative Urine Bilirubin Negative Urine Urobilinogen (Auto) Negative Ur Leukocyte Esterase Positive Urine RBC 7 H Urine WBC 25 H Ur Squamous Epith Cells 8 H Urine Bacteria Rare Hyaline Casts < 1 Ur Culture Indicated? Yes Urine HCG, Qual Negative Urine Opiates Screen Negative Urine Fentanyl Screen Negative Ur Barbiturates Screen Negative U Amphetamin/Meth Scrn Negative U Benzodiazepines Scrn Negative U Cocaine Metab Screen Negative U Marijuana (THC) Screen Negative Ethyl Alcohol < 3.0 Assessment & Plan Problem List (1) New onset seizure without head trauma: Status: Acute Assessment and plan: FU with MRI brain and EEG follow sz precaution Hold off on AED as she does not have any risk factors for sz/this is the first episode unless the EEG results abnormal. (2) Hyperthyroidism: Status: Acute Assessment and plan: continue with methimazole and Propranolol.
[2025-05-22] VITALS (9 sets, daily range): BP systolic 100–139; BP diastolic 53–96; PULSE 86–126; RESP 17–25; TEMP 36.8–37.3; O2SAT 95–99; BMI 29.5
--- NOTE | 2025-05-22 08:14 | XR_ITS ---
Examination: MRI of brain without intravenous contrast. MRI brain with intravenous contrast. Date and time of exam:May 22, 2025, 1323 hrs. Indications: Seizure episode yesterday Technique: Multiple axial and sagittal images of the brain to been obtained. Siemens high-resolution 1.52 Massiel short bore scanner utilized. Sagittal sections, T1 weighted images, TR 500, TE 14, are performed. Axial sections proton-density and T2-weighted images have been obtained. Inversion recovery axial images, TR 9260, TE 111, TR 2500. Diffusion weighted images, axial sections, TR 4800, TE 128, B value 1000. Axial sections, ADC map, TR 4800, TE 128. Axial and coronal images were also obtained post 14 cc gadolinium administered intravenously. Findings:: Enlargement of the sella turcica is not present. The optic chiasm and infundibular stalk are not remarkable. There is no localized enlargement of the medulla or genevieve. Fourth ventricle and cerebellar tonsils appear normal in position. No subacute area of hemorrhage density is seen. Fourth ventricle is midline. Mass in the cerebellopontine angle region is not evident. 7th and 8th nerve complexes exhibit symmetry Globes are symmetrical Orbital musculature including medial lateral rectus muscles do not exhibit abnormality Increased white matter signal is evident, punctate focus increased signal in the left parietal white matter FLAIR image 16 Effacement of the cortical sulcal markings is not identified. Mass effect upon the ventricular system is not identified. Diffusion-weighted images demonstrate no focus of restricted diffusion. Contrast images demonstrate no abnormal enhancement Impression: Negative for acute hemorrhage mass effect or midline shift. No acute infarct. Punctate focus increased signal in the left parietal white matter, differential would include demyelinating disease, clinical correlation advised.
[2025-05-22] MEDS: METHIMAZOLE 5 MG TABLET PO ×2 (09:06→21:59)
[2025-05-22 10:40] LABS: Basophils # (Auto) 0.0 Thou/mm3 (0.0-0.2); Basophils % (Auto) 0 % (0-2.5); Eosinophils # (Auto) 0.1 Thou/mm3 (0.0-0.5); Eosinophils % (Auto) 2 % (0-10); Hematocrit 33.6 % (36.0-46.0); Hemoglobin 10.5 g/dL (12.0-16.0); Immature Granulocytes Auto 0.01 Thou/mm3 (0.00-0.00); Lymphocytes # (Auto) 2.4 Thou/mm3 (1.0-4.8); Lymphocytes % (Auto) 46 % (10-50); Mean Corpuscular HGB Conc 31.3 g/dl (31.0-37.0); Mean Corpuscular Hemoglobin 24.0 pg (25.0-35.0); Mean Corpuscular Volume 77 fL (80-100); Monocytes # (Auto) 0.7 Thou/mm3 (0.0-0.8); Monocytes % (Auto) 13 % (0-12); Neutrophils # (Auto) 2.0 Thou/mm3 (1.8-7.7); Neutrophils % (Auto) 39 % (37-80); Nucleated Red Blood Cell # 0.00 Thou/mm3 (0.00-0.00); Nucleated Red Blood Cell % 0 /100 WBC (0); Platelet Count 253 Thou/mm3 (140-440); RDW Standard Deviation 36.6 fL (36.4-46.3); Red Blood Count 4.37 Miln/mm3 (4.00-5.20); White Blood Count 5.2 Thou/mm3 (3.6-11.0)
[2025-05-22 11:10] LABS: Alanine Aminotransferase 10 U/L (10-49); Albumin, Serum 3.8 gm/dL (3.5-5.0); Albumin/Globulin Ratio 1.4 (1.2-2.2); Alkaline Phosphatase 121 U/L (46-116); Anion Gap 7 (7-16); Aspartate Amino Transferase 15 U/L (0-34); BUN/Creatinine Ratio 14 Ratio (12-20); Bilirubin,Total 0.2 mg/dL (0.3-1.2); Blood Urea Nitrogen 7 mg/dL (9-23); Calcium 9.8 mg/dL (8.3-10.6); Calcium (Corrected) 10.0 mg/dL (8.5-10.1); Carbon Dioxide 26.7 mMol/L (20.0-31.0); Chloride 107 mMol/L (98-107); Creatinine (Component) 0.5 mg/dL (0.6-1.3); Estimated Creatinine Clearance 149.4 mL/min (>60); Free T4 (Free Thyroxine) 5.77 ng/dL (0.89-1.76); Globulin 2.8 gm/dL (2.3-3.5); Glucose 97 mg/dL (74-106); Magnesium 1.6 mg/dL (1.6-2.6); Osmolality,Calculated 279 (275-295); Phosphorous 4.3 mg/dL (2.4-5.1); Potassium 4.2 mMol/L (3.4-5.1); Sodium 141 mMol/L (136-145); Thyroid Stimulating Hormone < 0.01 uIU/mL (0.55-4.78); Total Protein 6.6 gm/dL (5.7-8.2); eGFR > 60 See Note
--- NOTE | 2025-05-22 11:11 | PD.RESPRO ---
Documentation for date of: 05/22/25 Subjective Subjective Interval history: No acute events overnight. Patient seen and examined at bedside. Vitals and labs reviewed. Patient denies any complaints/concerns. Patient denies any seizures, fever, chest pain, shortness of breath Exam Vital Signs Temp Pulse Resp BP Pulse Ox O2 Del Method 98.9 F 112 H 20 111/69 99 Room Air 05/22/25 08:00 05/22/25 08:00 05/22/25 08:00 05/22/25 08:00 05/22/25 08:00 05/22/25 08:00 Narrative Exam General: No acute distress; A&Ox3 Skin: Bilateral Lower Extremity bug bites/abrasions; Warm, dry, intact, no obvious rash. HENT: Posterior Head/Neck tenderness with small abrasion on occipital region; EOMI, not icteric. External ears normal. No rhinorrhea. Moist mucous membranes. Ant neck/thyroid region hard to palpation, non-tender Cardiovascular: Tachycardic, regular rhythm, no murmur, +S1/S2. Respiratory: Lungs CTAB GI: Soft, nontender, non-distended. No guarding or rebound tenderness. Extremities: no edema, no cyanosis, no clubbing. Extremity pulses present Neuro: tremors on outstretched arm bilaterally; No focal deficits observed. Conversant, moving all extremities. Psychiatric: Cooperative, appropriate affect. Objective Labs 05/23/25 04:25 05/23/25 04:25 Labs: Laboratory Results - last 24 hr 05/21/25 05/21/25 05/22/25 13:12 15:30 09:42 WBC 9.2 5.2 D RBC 4.53 4.37 Hgb 11.3 L 10.5 L Hct 34.0 L 33.6 L MCV 75 L 77 L MCH 24.9 L 24.0 L MCHC 33.2 31.3 RDW Std Deviation 34.9 L 36.6 Plt Count 290 253 D Neut % (Auto) 72 39 Lymph % (Auto) 20 46 Burnett % (Auto) 7 13 H Eos % (Auto) 0 2 Baso % (Auto) 0 0 Neut # (Auto) 6.6 2.0 Lymph # (Auto) 1.9 2.4 Burnett # (Auto) 0.6 0.7 Eos # (Auto) 0.0 0.1 Baso # (Auto) 0.0 0.0 Immature Gran # (Auto) 0.03 H 0.01 H Absolute Nucleated RBC 0.00 0.00 Immature Gran % 0 0 Nucleated RBC % 0 0 PT 11.9 INR 1.1 APTT 27.0 Sodium 140 Potassium 3.6 Chloride 106 Carbon Dioxide 22.3 Anion Gap 12 BUN 7 L Creatinine 0.3 L Estim Creat Clear Calc 236.2 eGFR > 60 BUN/Creatinine Ratio 23 H Glucose 84 Calculated Osmolality 276 Calcium 9.2 Corrected Calcium 9.4 Magnesium 1.5 L Total Bilirubin 0.2 L AST 16 ALT 11 Alkaline Phosphatase 121 H Troponin I < 0.020 B-Natriuretic Peptide 25 Total Protein 6.5 Albumin 3.7 Globulin 2.8 Albumin/Globulin Ratio 1.3 TSH < 0.01 L* Free T4 6.71 H Ur Collection Type Clean Catch Urine Color Lt-Yellow Urine Clarity Turbid A Urine pH 6.0 Ur Specific [place] 1.011 Urine Protein Negative Urine Glucose (UA) Negative Urine Ketones Negative Urine Blood 3+ A Urine Nitrite Negative Urine Bilirubin Negative Urine Urobilinogen (Auto) Negative Ur Leukocyte Esterase Positive Urine RBC 7 H Urine WBC 25 H Ur Squamous Epith Cells 8 H Urine Bacteria Rare Hyaline Casts < 1 Ur Culture Indicated? Yes Urine HCG, Qual Negative Urine Opiates Screen Negative Urine Fentanyl Screen Negative Ur Barbiturates Screen Negative U Amphetamin/Meth Scrn Negative U Benzodiazepines Scrn Negative U Cocaine Metab Screen Negative U Marijuana (THC) Screen Negative Ethyl Alcohol < 3.0 Quality Measures Quality Measures VTE prophylaxis Assessment & Plan Assessment Current Active Medications: Generic Name Dose Route Start Last Admin Trade Name Darin PRN Reason Stop Dose Admin Acetaminophen 650 mg 05/21/25 18:36 Acetaminophen 325 Mg Tablet PO 06/20/25 18:35 Q6H PRN Fever >101.5 Iron Sucrose 200 mg 05/21/25 21:00 05/21/25 21:41 Iron Sucrose Cplx Inj 20 Mg/Ml Vial 5 Ml IVP 06/20/25 20:59 200 mg Q48HR@2100 ANDERS Administration Methimazole 5 mg 05/21/25 19:50 05/22/25 09:06 Methimazole 5 Mg Tablet PO 06/20/25 19:49 5 mg BID ANDERS Administration Ondansetron HCl 4 mg 05/21/25 18:36 Ondansetron Inj 2 Mg/Ml Inj 2 Ml IVP 06/20/25 18:35 Q6H PRN NAUSEA OR VOMITING Protocol Propranolol HCl 10 mg 05/21/25 19:50 05/22/25 05:50 Propranolol 10 Mg Tablet PO 06/20/25 19:49 Not Given TID ANDERS Plan Tg Lerma is a 30 year old female with no significant past medical history presented to the ED after having a syncopal episode with possible seizure. Patient was admitted for observation given seizure. #Seizure Etiology unknown, no suspecting trigger for seizure. Possibly due to stress, dehydration, hormonal changes or combination with something else as well. Patient endorsed tongue pain post event, no obvious tongue laceration was seen. Patient endorses mild head pain with neck tenderness and stiffness. Patient denies ever happening before, denies family history of seizures. CT Head negative. Patient given Tylenol 1,[address] C-spine negative; Brain MRI Negative for acute hemorrhage mass effect or midline shift; No acute infarct; Punctate focus increased signal in the left parietal white matter -Consulted Neurology, appreciate recs -EEG done, f/u results -Seizure precautions prn with bed rest #hyperthyroidism Newly discovered hyperthyroidism. Patient endorses feeling anxious, sweaty, fatigued sometimes. Endorses feeling light-headed occasionally when standing up from sitting position. Patient endorses around 90 pound weight loss in the last year. On exam, patient was anxious appearing, had tremors on outstretched arm bilaterally, had hard thyroid area to palpation, was tachycardic, mildly elevated blood pressure. Sinus Tachy on EKG. Labs showed TSH <0.01, FT4 6.71. Given 1 L bolus in ED, 1 L maintenance fluids. US Thyroid Right showed thyromegaly; Thyroiditis pattern -Ordered Thyroglobulin Panel, f/u -Held Propranolol for soft BP -Methimazole 5 mg po bid #microcytic anemia Likely due to BOUCHRA vs insuffienct PO intake. Patient endorses being fatigued often. Denies having heavy periods; has been on control for ~3 years. Hgb on admission 11.3 with MCV 75. -Ordered Iron IV q other day -Will follow [facility] Hospital Management: Disposition: Tele Diet: Regular GI Prophylaxis: n/a Bowel Prophylaxis: n/a DVT Prophylaxis: SCD's CODE STATUS: FULL CODE Patient plan of care was discussed with the attending physician, Dr. Apryl Erickson MD PGY-1 Attending Provider Attestation/Addendum I reviewed labs, imaging, EKG, home medications and prior available records. Face to face evaluation was performed by me. I have personally examined the patient and discussed assessment and plan with the IM team. I reviewed the resident note and agree with the plan with exceptions as below. Seizure, new onset Syncope Sinus tachycardia Uncontrolled hypothyroidism Microcytic anemia Consulted neurology: Recommended MRI and EEG. Hold antiepileptic medications at this time Ordered thyroid workup Started propranolol Started methimazole Monitor heart rate Ordered ultrasound of the thyroid: Showed right thyromegaly Ordered echocardiogram Started ferrous sulfate
[2025-05-22] MEDS: PROPRANOLOL 10 MG TABLET PO ×2 (13:14→22:00)
[2025-05-22] MEDS: DIAZEPAM INJ 5 MG/ML VIAL 2 ML 1 MG IVP (13:15)
--- NOTE | 2025-05-22 23:41 | PD.NEUROPROG ---
Documentation for date of: 05/22/25 Subjective Subjective Interval history: Patient was seen in telemetry. No seizures reported after admission. Exam - Neurology Vital Signs Temp Pulse Resp BP Pulse Ox O2 Del Method 98.3 F 106 H 22 H 132/96 H 98 Room Air 05/22/25 16:00 05/22/25 22:00 05/22/25 16:00 05/22/25 22:00 05/22/25 16:00 05/22/25 16:00 Narrative Exam GENERAL APPEARANCE: Well hydrated, well-nourished in no acute distress. HEENT: Normocephalic, atraumatic, extraocular movements intact. Pupils: Equal reacting to light and accommodation NECK: Supple, no JVD or bruits. CARDIOVASULAR: Heart: S1, S2 heard, regular without S3-S4 or murmur no rubs or gallops. LUNGS/CHEST: Clear to auscultation bilaterally. No rails, rhonchi, or wheezing. Normal inspection. ABDOMEN: Soft, nontender, with normal bowel sounds. No pulsatile masses. No rebound, rigidity, or guarding. Normal inspection and palpation. EXTREMITIES: Normal inspection and palpation. No edema, clubbing or cyanosis. SKIN: Warm and dry without rashes. Normal inspection. MUSCULOSKELETAL: No cervical, thoracic, lumbar or midline bony tenderness. Normal inspection. NEURO: Alert, awake and oriented x3. Cranial nerves: II through XII grossly intact. Speech and language: Normal with no dysarthria or dysphasia. Motor system: Tone and bulk: Normal: Strength: 5 out of 5 in all 4 extremities; No pronator drift noted. Deep tendon reflexes: 2+ bilaterally symmetrical. Plantar reflex: Downgoing bilaterally. Sensory system: Intact to all modalities of sensation bilaterally. Coordination: Intact to [id number]-[id number]-jerij and rcni-shwr-gtgl test bilaterally. No ataxia, no dysmetria, or dysdiadochokinesia noted. No intention tremors noted. Gait: Normal. Toe, heel, tandem walk all are normal. Romberg: Negative. No signs of meningeal irritation noted. PSYCHIATRIC: Normal mood and affect. Objective Labs 05/23/25 04:25 05/23/25 04:25 Labs: Laboratory Results - last 24 hr 05/22/25 09:42 WBC 5.2 D RBC 4.37 Hgb 10.5 L Hct 33.6 L MCV 77 L MCH 24.0 L MCHC 31.3 RDW Std Deviation 36.6 Plt Count 253 D Neut % (Auto) 39 Lymph % (Auto) 46 Pershing % (Auto) 13 H Eos % (Auto) 2 Baso % (Auto) 0 Neut # (Auto) 2.0 Lymph # (Auto) 2.4 Pershing # (Auto) 0.7 Eos # (Auto) 0.1 Baso # (Auto) 0.0 Immature Gran # (Auto) 0.01 H Absolute Nucleated RBC 0.00 Immature Gran % 0 Nucleated RBC % 0 Sodium 141 Potassium 4.2 D Chloride 107 Carbon Dioxide 26.7 Anion Gap 7 BUN 7 L Creatinine 0.5 L Estim Creat Clear Calc 149.4 eGFR > 60 BUN/Creatinine Ratio 14 Glucose 97 Calculated Osmolality 279 Calcium 9.8 Corrected Calcium 10.0 Phosphorus 4.3 Magnesium 1.6 Total Bilirubin 0.2 L AST 15 ALT 10 Alkaline Phosphatase 121 H Total Protein 6.6 Albumin 3.8 Globulin 2.8 Albumin/Globulin Ratio 1.4 TSH < 0.01 L* Free T4 5.77 H Assessment & Plan Assessment and plan (1) New onset seizure without head trauma: Status: Acute Assessment and plan: As EEG showed abnormality with multifocal epileptiform discharges, recommended to start Keppra 500 mg twice a day. Advised no driving until cleared by neurology. She is okay to go back to work (2) Hyperthyroidism: Status: Acute Assessment and plan: Continue with methimazole and propranolol
[2025-05-23] VITALS: BP 118/77; PULSE 84; PULSE 99; RESP 27; TEMP 37.2; O2SAT 97
[2025-05-23 04:00] VITALS: BP 135/89; PULSE 102; PULSE 86; RESP 40; TEMP 36.1; O2SAT 98
[2025-05-23 05:52] VITALS: BP 135/89; PULSE 102
[2025-05-23] MEDS: PROPRANOLOL 10 MG TABLET PO (05:52)
[2025-05-23 06:41] LABS: Basophils # (Auto) 0.0 Thou/mm3 (0.0-0.2); Basophils % (Auto) 0 % (0-2.5); Eosinophils # (Auto) 0.3 Thou/mm3 (0.0-0.5); Eosinophils % (Auto) 3 % (0-10); Hematocrit 37.1 % (36.0-46.0); Hemoglobin 11.5 g/dL (12.0-16.0); Immature Granulocytes Auto 0.01 Thou/mm3 (0.00-0.00); Lymphocytes # (Auto) 3.5 Thou/mm3 (1.0-4.8); Lymphocytes % (Auto) 44 % (10-50); Mean Corpuscular HGB Conc 31.0 g/dl (31.0-37.0); Mean Corpuscular Hemoglobin 24.1 pg (25.0-35.0); Mean Corpuscular Volume 78 fL (80-100); Monocytes # (Auto) 0.8 Thou/mm3 (0.0-0.8); Monocytes % (Auto) 10 % (0-12); Neutrophils # (Auto) 3.4 Thou/mm3 (1.8-7.7); Neutrophils % (Auto) 43 % (37-80); Nucleated Red Blood Cell # 0.00 Thou/mm3 (0.00-0.00); Nucleated Red Blood Cell % 0 /100 WBC (0); Platelet Count 315 Thou/mm3 (140-440); RDW Standard Deviation 36.6 fL (36.4-46.3); Red Blood Count 4.78 Miln/mm3 (4.00-5.20); White Blood Count 8.1 Thou/mm3 (3.6-11.0)
[2025-05-23 07:07] LABS: Alanine Aminotransferase 9 U/L (10-49); Albumin, Serum 4.2 gm/dL (3.5-5.0); Albumin/Globulin Ratio 1.4 (1.2-2.2); Alkaline Phosphatase 123 U/L (46-116); Anion Gap 12 (7-16); Aspartate Amino Transferase 11 U/L (0-34); BUN/Creatinine Ratio 23 Ratio (12-20); Bilirubin,Total 0.3 mg/dL (0.3-1.2); Blood Urea Nitrogen 9 mg/dL (9-23); Calcium 10.4 mg/dL (8.3-10.6); Calcium (Corrected) 10.4 mg/dL (8.5-10.1); Carbon Dioxide 26.8 mMol/L (20.0-31.0); Chloride 103 mMol/L (98-107); Creatinine (Component) 0.4 mg/dL (0.6-1.3); Estimated Creatinine Clearance 186.8 mL/min (>60); Globulin 2.9 gm/dL (2.3-3.5); Glucose 83 mg/dL (74-106); Magnesium 1.7 mg/dL (1.6-2.6); Osmolality,Calculated 280 (275-295); Phosphorous 5.2 mg/dL (2.4-5.1); Potassium 3.8 mMol/L (3.4-5.1); Sodium 142 mMol/L (136-145); Total Protein 7.1 gm/dL (5.7-8.2); eGFR > 60 See Note
[2025-05-23 07:36] VITALS: BP 98/63; PULSE 99; RESP 16; TEMP 36.1; O2SAT 98
[2025-05-23 08:00] VITALS: PULSE 83
[2025-05-23] MEDS: ACETAMINOPHEN 325 MG TABLET 650 MG PO (08:41)
[2025-05-23] MEDS: METHIMAZOLE 5 MG TABLET PO (08:41)
--- NOTE | 2025-05-23 11:11 | ESDS_ITS ---
<Statement entered by Rae Lester MD - 05/23/25 17:21> I have reviewed the note and agree with the resident's assessment & plan with exceptions as below. I have personally reviewed labs, imaging, home meds/prior records, examined the patient, formulated and discussed management plan with the IM team. Patient examined at bedside today. Patient cleared from neurology to be discharged after EEG showed abnormal epileptic form changes and to be given 500 of Keppra twice daily and to follow-up outpatient. Patient to continue with methimazole and propranolol and was also prescribed a blood pressure cuff for further management of newly diagnosed hyperthyroidism, likely Graves' disease. Patient to follow-up with PCP and possibly referred to an outside operator for further management. Patient was then medically cleared for discharge and discharged with the following instructions listed below. Patient also to follow-up with thyroid labs in which we ordered for her inpatient to be done on an outpatient basis. Patient must avoid driving upon all circumstances until cleared from neurologist. Patient was also given a work note. Rae Lester, PGY-2 Internal Medicine Planned Discharge Date 05/23/25 DS: Providers Provider Date of admission: 05/21/25 18:36 Primary care physician: Leola Acevedo PA-C Admitting Provider: Josse Pink MD Attending Provider on Admission: Josse Pink MD Consults: 05/21/25 18:43 Consult to Neurology / Tele-Neurology Routine Comment: Seizure Consulting Provider: Bill Nguyen Attending Provider on DC: Josse Pink MD Discharging Provider: Josse Pink MD DS: Diagnosis Problem List Completed Was Problem List Reviewed/Reconciled?: Yes Hospital Course Hospital Course Hospital course: Tg Lerma is a 30 year old female with no significant past medical history presented to the ED at [facility] after having a syncopal episode with possible seizure, found to have hyperthyroidism with symptoms (anxiety, tachycardia, diaphoresis, weight loss). Patient was admitted for observation given seizure. Patient?s vitals on admission were notable for tachycardia of 128 and blood pressure of 140/78. Labs were significant for mild anemia, TSH <0.01 and free t4 at 6.71. Patient was initially given fluids, Tylenol and magnesium oxide in the ED. Patient had an Brain MRI done negative for acute hemorrhage, mass effect or midline shift; no acute infarct; Punctate focus increased signal in the left parietal white matter. Patient had an EEG done which showed multi- epileptiform changes. For her hyperthyroidism patient was given propranolol 10 mg TID and Methimazole 5 mg BID. For her seizures patient is being sent out with keppra 500 mg BID. Discharge Instructions Follow-up with your Primary Care Provider within 1 week. Take your new seizure medicine, Keppra, as prescribed. Take your new thyroid medicines, these are for your hyperthyroidism. Methimazole and Propranolol Have your Primary Care Provider refer you to your neurologist, Dr. Nguyen AVOID DRIVING UNTIL YOU ARE CLEARED FROM YOUR NEUROLOGIST Measure your blood pressure at home, you were slightly elevated inpatient, and speak with your Primary Care Provider in regards to continuing your control considering this. We will provide a work note for the time you were admitted. Take your medicines as prescribed. Return to ED if your symptoms worsen or return. Admission Diagnosis #Newly diagnosed Seizure disorder #Hyperthyroidism, new diagnosis #Microcytic anemia Patient plan of care was discussed with the attending physician, Dr. Pink & resident physician Dr. Trevon Erickson MD PGY-1 Time Spent with Patient Time attestation: Total time spent providing and/or coordinating discharge services: Time spent: Greater than 30 minutes Exam Vital Signs Temp Pulse Resp BP Pulse Ox O2 Del Method 97.0 F 83 16 98/63 98 Room Air 05/23/25 07:36 05/23/25 08:00 05/23/25 07:36 05/23/25 07:36 05/23/25 07:36 05/23/25 07:36 Narrative Exam General: No acute distress; A&Ox3 Skin: Bilateral Lower Extremity bug bites/abrasions; Warm, dry, intact, no obvious rash. HENT: Posterior Head/Neck tenderness with small abrasion on occipital region; EOMI, not icteric. External ears normal. No rhinorrhea. Moist mucous membranes. Ant neck/thyroid region hard to palpation, non-tender Cardiovascular: Tachycardic, regular rhythm, no murmur, +S1/S2. Respiratory: Lungs CTAB GI: Soft, nontender, non-distended. No guarding or rebound tenderness. Extremities: no edema, no cyanosis, no clubbing. Extremity pulses present Neuro: No focal deficits observed. Conversant, moving all extremities. Psychiatric: Cooperative, appropriate affect. Discharge Plan Plan Patient Disposition: HOME (Self Care) Patient condition on transfer: Stable Care Plan Goals: Discharge instructions Follow-up with your Primary Care Provider within 1 week. Take your new seizure medicine, Keppra, as prescribed. Take your new thyroid medicines, these are for your hyperthyroidism. Methimazole and Propranolol Have your Primary Care Provider refer you to your neurologist, Dr. Nguyen AVOID DRIVING UNTIL YOU ARE CLEARED FROM YOUR NEUROLOGIST Measure your blood pressure at home, you were slightly elevated inpatient, and speak with your Primary Care Provider in regards to continuing your c ontrol considering this. We will provide a work note for the time you were admitted. Take your medicines as prescribed. Return to ED if your symptoms worsen or return. Prescriptions/Referrals Prescriptions/Med Rec: New levetiracetam [Keppra] 500 mg tablet 500 mg PO BID 30 Days Qty: 60 0RF Rx Instructions: Take one tablet by mouth twice a day methimazole 5 mg tablet 5 mg PO BID 30 Days Qty: 60 0RF Rx Instructions: Take one tablet by mouth twice a day propranolol 10 mg tablet 10 mg PO TID 30 Days Qty: 90 0RF Rx Instructions: Take one tablet by mouth three times a day (DME) blood pressure test kit-medium Kit See Rx Instructions .Route Qty: 1 0RF Rx Instructions: As directed Continued desogestrel-ethinyl estradiol [Enskyce] 0.15-0.03 mg tablet 1 tab PO QDAY Referrals: Leola Acevedo PA-C [Primary Care Provider] - Bill Nguyen MD [Physician] - Outpatient Orders (i.e. Home Health, Labs, Imaging): Free T4 (Free Thyroxine) (Routine) Timeframe: 1 Week Location: Determined by Patient Ordered By: Rae Lester Thyroid Stimulating Hormone (Routine) Timeframe: 1 Week Location: Determined by Patient Ordered By: Rae Lester Patient/Caregiver Discharge Instructions Education Materials: Levetiracetam tablets, Diagnosing a Thyroid Problem, Epilepsy Dc Ch, When You Have Hyperthyroidism Print Language: Portuguese Stand Alone Forms: Deepika Award Info., Patient Portal Info Letter, Work/Release Restrictions Discharge Order Discharge Orders: Discharge (Routine); Ordered 05/23/25 Ordered By: Rae Lester Quality Discharge Quality Measures VTE prophylaxis MD Attestestation MD Attestation I reviewed labs, imaging, EKG, home medications and prior available records. Face to face evaluation was performed by me. I have personally examined the patient and discussed assessment and plan with the IM team. I reviewed the resident note and agree with the plan with exceptions as below. Seizure, new onset Syncope Sinus tachycardia Uncontrolled hypothyroidism Microcytic anemia Consulted neurology: Recommended MRI and EEG. EEG did show possible seizure a ctivity for which patient was started on Keppra and will continue this medicine upon discharge Ordered thyroid workup which can be followed up as outpatient Continue propranolol Continue methimazole Ordered ultrasound of the thyroid: Showed right thyromegaly Outpatient follow-up with endocrinology Ordered echocardiogram however that can be done as outpatient Started ferrous sulfate Time spent is 35 minutes. More than 50% of the time was spent on patient education and coordination of care.
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
[2025-05-23 12:00] VITALS: BP 136/83; PULSE 97; RESP 16; TEMP 36.1; O2SAT 98
--- NOTE | 2025-05-24 07:21 | PD.VPROG1 ---
Telemedicine visit statement This visit was conducted with the use of phone was obtained on 05/23/25. Documentation for date of: 05/23/25 Subjective Subjective Interval history: Patient is in telemetry today, no new symptoms after admission, no sz after coming to the floor. Virtual exam Vital Signs Temp Pulse Resp BP Pulse Ox O2 Del Method 97.0 F 97 16 136/83 H 98 Room Air 05/23/25 12:00 05/23/25 12:00 05/23/25 12:00 05/23/25 12:00 05/23/25 12:00 05/23/25 12:00 Objective Labs 05/23/25 04:25 05/23/25 04:25 Assessment & Plan Problem List (1) New onset seizure without head trauma: Status: Acute Assessment and plan: As the EEG showed multifocal epileptiform discharges consistent with seizures, we will keep her on Keppra 500 mg twice a day, advised no driving. Follow-up in clinic in May (2) Hyperthyroidism: Status: Acute Assessment and plan: continue with methimazole and Propranolol.
[2025-05-26 15:34] LABS: Thyroglobulin Antibodies 12 IU/mL (< OR = 1)
[2025-05-28 07:07] LABS: Thyroglobulin 0.9 ng/mL
== END 2025-05-23 12:12 | disposition home or self-care (01) ==
LOC: SERX 13:33 → SERHOLD 19:18 → S2NX 05-22 08:54 → SERHOLD 05-22 08:54 → S2NX 05-22 08:55 → SERHOLD 05-22 08:55 → S2NX 05-22 08:56 → S3SX 05-23 06:25
PROVIDERS: Student in an Organized Health Care Education/Training Program; Admitting Provider Student in an Organized Health Care Education/Training Program; Emergency Provider Nurse Practitioner Family; PCP Physician Assistant; Visit Provider Student in an Organized Health Care Education/Training Program
DX: G40.909 Epilepsy, unspecified, not intractable, without status epilepticus (principal); E05.90 Thyrotoxicosis, unspecified without thyrotoxic crisis or storm; D50.9 Iron deficiency anemia, unspecified; R00.0 Tachycardia, unspecified
CPT/HCPCS: 36415; 70450; 70553; 71045; 72125; 76536; 80053; 80307; 80320; 81001; 81025; 83735; 83880; 84100; 84432; 84439; 84443; 84484; 85025; 85610; 85730; 86800; 87086; 93005; 95816; 96361; 96374; 96375; 99284; A4649; A9577; G0378; J1756; J3360; J7030; A9270; G0480

== ENCOUNTER 2025-06-07 08:52 | Emergency (ER) | payer MEDICAID, SELFPAY ==
[2025-06-07 08:53] VITALS: BP 143/92; PULSE 134; RESP 18; TEMP 37; O2SAT 95
[2025-06-07 09:10] VITALS: PULSE 130; RESP 18; O2SAT 98; BMI 28.3
--- NOTE | 2025-06-07 09:19 | XR_ITS ---
Examination: AP chest single view Technique one AP portable upright chest single view Date and time: June 07, 2025, 0955 hours, comparison May 21, 2025 INDICATIONS: Coughing shortness of breath beginning today. FINDINGS: Normal heart size. Suspicious for early right base pneumonia The osseous structures are intact IMPRESSION: Suspicious for early right base pneumonia
[2025-06-07] MEDS: levETIRAcetam INJ 100 MG/ML VIAL 5ML 1000 MG IVP (09:37)
[2025-06-07] MEDS: SODIUM CHLORIDE 0.9% 1000 ML 1,000 ML 999 ML IV (09:37)
[2025-06-07 09:59] LABS: Basophils # (Auto) 0.0 Thou/mm3 (0.0-0.2); Basophils % (Auto) 0 % (0-2.5); Eosinophils # (Auto) 0.1 Thou/mm3 (0.0-0.5); Eosinophils % (Auto) 1 % (0-10); Hematocrit 35.0 % (36.0-46.0); Hemoglobin 11.2 g/dL (12.0-16.0); Immature Granulocytes Auto 0.03 Thou/mm3 (0.00-0.00); Lymphocytes # (Auto) 2.3 Thou/mm3 (1.0-4.8); Lymphocytes % (Auto) 30 % (10-50); Mean Corpuscular HGB Conc 32.0 g/dl (31.0-37.0); Mean Corpuscular Hemoglobin 24.7 pg (25.0-35.0); Mean Corpuscular Volume 77 fL (80-100); Monocytes # (Auto) 0.7 Thou/mm3 (0.0-0.8); Monocytes % (Auto) 9 % (0-12); Neutrophils # (Auto) 4.6 Thou/mm3 (1.8-7.7); Neutrophils % (Auto) 59 % (37-80); Nucleated Red Blood Cell # 0.00 Thou/mm3 (0.00-0.00); Nucleated Red Blood Cell % 0 /100 WBC (0); Platelet Count 280 Thou/mm3 (140-440); RDW Standard Deviation 37.2 fL (36.4-46.3); Red Blood Count 4.53 Miln/mm3 (4.00-5.20); White Blood Count 7.9 Thou/mm3 (3.6-11.0)
--- NOTE | 2025-06-07 10:03 | PD.EDSEIZ ---
ED Seizures RME/HPI General Chief Complaint: Seizure Stated Complaint: SEIZURE Time Seen by Provider: 06/07/25 09:19 Arrival date/time: 06/07/25 08:52 Limitations: no limitations RME / HPI RME / HPI Narrative: 30 year old female with history of recently diagnosed seizures and hyperthyroidism presents to the ED BIBA from home for evaluation following a seizure. Per mother, seizure described as tonic-clonic lasting < 1 minute. Reports the patient is compliant with medications and her last seizure was in April. Patient denies any sleep deprivation or use of alcohol. Denies headache, fevers, chills, sore throat, recent URI. Related Data Home Medications ?Medication ?Instructions ?Recorded ?Confirmed desogestrel 0.15 mg-ethinyl 1 tab PO QDAY 08/08/20 05/22/25 estradiol 0.03 mg tablet (Enskyce) Previous Rx's ?Medication ?Instructions ?Recorded blood pressure test kit-medium #1 ea 05/23/25 levetiracetam 500 mg tablet 500 mg PO BID 1 month #60 tabs 05/23/25 (Keppra) methimazole 5 mg tablet 5 mg PO BID 1 month #60 tabs 05/23/25 propranolol 10 mg tablet 10 mg PO TID 1 month #90 tabs 05/23/25 azithromycin 250 mg tablet 250 mg PO QDAY 6 days #6 tabs 06/07/25 (Zithromax Z-Atilio) famotidine 20 mg tablet (Pepcid) 20 mg PO BID allergic reaction #20 06/07/25 tabs Allergies Allergy/AdvReac Type Severity Reaction Status Date / Time No Known Allergies Allergy Unknown Verified 05/21/25 13:05 Review of Systems Review of Systems Systems Reviewed: All systems reviewed, normal except as documented Past Medical History Past Medical History NEUROLOGIC: Positive Seizures (unknown etiology, first 05/2025) CARDIAC: Negative Cardiac Disorders or Congestive Heart Failure RESPIRATORY: Positive Asthma; Negative Chronic Obstructive Pulmonary Disease (COPD) GENITOURINARY: Negative Renal Disease ENDOCRINE: Negative Diabetes Mellitus Type 1 or Diabetes Mellitus Type 2 HEMATOLOGIC: Negative Sickle Cell Disease Social History SMOKING STATUS: Never smoker ED Exam General Limitations: Present no limitations General appearance: Present alert, in no apparent distress and obese Head Head exam: Present atraumatic, normocephalic and normal inspection Eye Eye exam: Present normal appearance, PERRL and EOMI ENT ENT exam: Present normal exam, normal oropharynx and mucous membranes moist Neck Neck exam: Present normal inspection, full ROM and trachea midline Chest Chest inspection: Present normal inspection and symmetric chest wall rise Respiratory Respiratory exam: Present normal lung sounds bilaterally Cardiovascular Cardiovascular exam: Present regular rate, normal rhythm and normal heart sounds Abdominal Exam Abdominal exam: Present soft and normal bowel sounds Extremities Exam Extremities exam: Present normal inspection and full ROM Back Exam Back exam: Present normal inspection and full ROM Neurological Exam Neurological exam: Present alert, oriented X3 and CN II-XII intact Psychiatric Psychiatric exam: Present normal affect and normal mood Skin Skin exam: Present warm, dry, intact and normal color Course Quality Measures none Orders Category Date Time Status Lithographic Plate Maker NOW Care 06/07/25 09:19 Active Continuous Pulse Oximetry NOW Care 06/07/25 09:19 Active Insert IV NOW Care 06/07/25 09:19 Active XR chest 1V portable Stat Exams 06/07/25 09:19 Completed CBC Stat Lab 06/07/25 09:50 Completed Comprehensive Metabolic Panel Stat Lab 06/07/25 09:50 Completed Prothrombin Time with INR Stat Lab 06/07/25 09:50 Completed Urinalysis Stat Lab 06/07/25 09:19 Ordered Sodium Chloride 0.9% 1000 ml [Ns] 1,000 ml Med 06/07/25 09:19 Discontinued IV 999 mls/hr levETIRAcetam INJ [Keppra Inj] Med 06/07/25 09:19 Discontinued 1,000 mg IVP X1 ONE Oxygen Delivery NOW RT 06/07/25 09:19 Active Vital Signs Vital signs: Vital Signs Temperature 98.6 F 06/07/25 08:53 Pulse Rate 134 H 06/07/25 08:53 Respiratory Rate 18 06/07/25 08:53 Blood Pressure 143/92 H 06/07/25 08:53 Pulse Oximetry (%) 95 06/07/25 08:53 Oxygen Delivery Method Room Air 06/07/25 08:53 Pulse ox is 95% on room air which is adequate. Seizure MDM Narrative MDM Narrative:: Hazel Caruso am scribing for and in the presence of Dr. Arizmendi. Patient data External records reviewed:: [facility] previous records (I reviewed admission from 05/21/2025 through 05/24/2025 ) Clinical information provided by:: patient Social determinants that could affect healthcare access:: none Patient has the following chronic illnesses:: seizure, hyperthyroidism How is presenting disease/condition affected by chronic disease/condition?: exacerbated by Evaluation data The following diagnostics were reviewed and interpreted by me:: lab results and radiology exam(s) Lab and/or radiology exams considered but not ordered:: None Interpretation Summary: Ordering Physician: Raleigh Arizmendi MD Date of Service: 06/07/25 Procedure(s): XR chest 1V portable Accession Number(s): [id number] cc: Leola Acevedo PA-C; Raleigh Arizmendi MD; Reyes Ryan MD~ Examination: AP chest single view Technique one AP portable upright chest single view Date and time: June 07, 2025, 0955 hours, comparison May 21, 2025 INDICATIONS: Coughing shortness of breath beginning today. FINDINGS: Normal heart size. Suspicious for early right base pneumonia The osseous structures are intact IMPRESSION: Suspicious for early right base pneumonia Dictated By: Reyes Ryan MD Signed By: <Electronically signed by Reyes Ryan MD in OV> 06/07/25 1020 Medications / Prescriptions Medications or Prescriptions considered but not ordered:: None Medication administrations:: Medication Administration History Discontinued Medications Sodium Chloride (Ns) 1,000 mls @ 999 mls/hr IV .Q1H1M ONE Stop: 06/07/25 10:19 Last Admin: 06/07/25 09:37 Dose: 999 mls/hr Documented By: CATHLEEN Levetiracetam (Levetiracetam Inj 100 Mg/Ml Vial 5ml) 1,000 mg IVP X1 ONE Stop: 06/07/25 09:20 Last Admin: 06/07/25 09:37 Dose: 1,000 mg Documented By: CATHLEEN See above Consultations Consultation(s) initiated? (list below): No Diagnosis Seizure Differential Diagnosis: focal seizure, generalized seizure, epileptic seizure and status epilepticus Most likely diagnosis given after review of the tests above:: Breakthrough seizure right basilar infiltrate Admission Indicated Admission indicated?: not indicated Admission Request Was there a request for admission?: No Disposition Plan Disposition Plan: Discharge Discharge Attestation Discharge Attestation: The patient and all family members were given an opportunity to ask questions and understood the discharge instructions. Discharge instructions specifically effects, indications for sooner follow up or return to the emergency department, and the expected course of current diagnosis. Patient condition: Stable Discharge Plan Plan Patient Disposition: HOME (Self Care) Patient condition on transfer: Stable Prescriptions/Referrals Prescriptions/Med Rec: New azithromycin [Zithromax Z-Atilio] 250 mg tablet 250 mg PO QDAY 6 Days Qty: 6 0RF Rx Instructions: start on day 2 of therapy famotidine [Pepcid] 20 mg tablet 20 mg PO BID MDD 2 Qty: 20 0RF No Action desogestrel-ethinyl estradiol [Enskyce] 0.15-0.03 mg tablet 1 tab PO QDAY levetiracetam [Keppra] 500 mg tablet 500 mg PO BID 30 Days Qty: 60 0RF Rx Instructions: Take one tablet by mouth twice a day methimazole 5 mg tablet 5 mg PO BID 30 Days Qty: 60 0RF Rx Instructions: Take one tablet by mouth twice a day propranolol 10 mg tablet 10 mg PO TID 30 Days Qty: 90 0RF Rx Instructions: Take one tablet by mouth three times a day (DME) blood pressure test kit-medium Kit See Rx Instructions .Route Qty: 1 0RF Rx Instructions: As directed Referrals: Leola Acevedo PA-C [Primary Care Provider] - In 1 week Problem List Clinical Impression: Breakthrough seizure, Right lower lobe pulmonary infiltrate Patient/Caregiver Discharge Instructions Discharge Activity: resume usual activities Education Materials: ED Seizure, Recurrent (Adult) Additional Instructions: Follow-up with your medical doctor in 3 days. Take your medicines as directed. On Xray, there is a possible basilar pneumonia which we are treating you with Azithromycin, please take the antibiotics as prescribed. Print Language: Faroese Stand Alone Forms: Deepika Award Info., Patient Portal Info Letter
[2025-06-07 10:09] VITALS: BP 130/79; PULSE 132; RESP 19; TEMP 36.8; O2SAT 98
[2025-06-07 10:11] LABS: INR 1.0 (0.9-1.3); Prothrombin Time 11.3 Seconds (9.0-12.2)
[2025-06-07 10:16] LABS: Alanine Aminotransferase 17 U/L (10-49); Albumin, Serum 3.9 gm/dL (3.5-5.0); Albumin/Globulin Ratio 1.4 (1.2-2.2); Alkaline Phosphatase 119 U/L (46-116); Anion Gap 10 (7-16); Aspartate Amino Transferase 20 U/L (0-34); BUN/Creatinine Ratio 20 Ratio (12-20); Bilirubin,Total 0.2 mg/dL (0.3-1.2); Blood Urea Nitrogen 8 mg/dL (9-23); Calcium 9.2 mg/dL (8.3-10.6); Calcium (Corrected) 9.3 mg/dL (8.5-10.1); Carbon Dioxide 25.5 mMol/L (20.0-31.0); Chloride 105 mMol/L (98-107); Creatinine (Component) 0.4 mg/dL (0.6-1.3); Estimated Creatinine Clearance 183.1 mL/min (>60); Globulin 2.8 gm/dL (2.3-3.5); Glucose 105 mg/dL (74-106); Osmolality,Calculated 277 (275-295); Potassium 3.9 mMol/L (3.4-5.1); Sodium 140 mMol/L (136-145); Total Protein 6.7 gm/dL (5.7-8.2); eGFR > 60 See Note
== END 2025-06-07 12:45 | disposition home or self-care (01) ==
PROVIDERS: Emergency Provider Family Medicine; PCP Physician Assistant
DX: R56.9 Unspecified convulsions (principal); R91.8 Other nonspecific abnormal finding of lung field
CPT/HCPCS: 36415; 71045; 80053; 81001; 85025; 85610; 99283; J1953; J7030

== ENCOUNTER → 2025-06-12 | Outpatient (CLI) | payer MEDICAID, SELFPAY ==
--- NOTE | 2025-06-12 10:22 | XR_ITS ---
Examination: PA lateral chest 2 views TECHNIQUE: Upright PA lateral chest 2 views Date and time: June 12, 2025 1034 hours, comparison 06/07/2025 INDICATIONS: History pneumonia posttreatment 06/07/2025 FINDINGS: Normal heart size. No current pneumonia. The osseous structures are mildly demineralized IMPRESSION: No current pneumonia
== END | disposition home or self-care (01) ==
LOC: CDIM 09:51
PROVIDERS: PCP Physician Assistant; Referring Provider Physician Assistant; Visit Provider Physician Assistant
DX: J18.9 Pneumonia, unspecified organism (principal)
CPT/HCPCS: 71046

== ENCOUNTER 2025-07-14 13:33 | Emergency (ER) | payer MEDICAID, SELFPAY ==
[2025-07-14 13:35] VITALS: PULSE 124; RESP 18; O2SAT 97; BMI 28.3
--- NOTE | 2025-07-14 13:35 | PC.NURSE ---
PT BROUGHT IN BY AMBULANCE S/P SEIZURE AT HOME LASTING ABOUT 4 MINUTES PER FAMILY. HX SZ'S. C/O HEAD PAIN AND PAIN LEFT SIDE TONGUE (BITE JIM NOTED). DENIES FALLING AND STATES WAS IN BED WHEN HAD SEIZURE
--- NOTE | 2025-07-14 13:39 | PD.EDSEIZ ---
ED Seizures RME/HPI General Chief Complaint: Seizure Stated Complaint: SEIZURE Time Seen by Provider: 07/14/25 13:38 Arrival date/time: 07/14/25 13:33 RME / HPI RME / HPI Narrative: DR. SANCHEZ MAIN ED EVALUATION: 30-year-old female with a history of seizure disorder presents to the Emergency Department after a witnessed seizure lasting approximately 4 minutes earlier today. Per EMS, vitals en route were BP 142/84, HR 124, RR 18, and satting at 97% on room air. The patient reports biting the left side of her tongue during the episode but denies any fall or head trauma since the event occurred while she was in bed. No loss of bladder or bowel control. She reports a headache rated 5/10 following the seizure. She states she is compliant with her Keppra and has seizures about once per month, with the last episode occurring one month ago. No known allergies. Denies fever, recent illness, alcohol use, or missed medication doses. She follows with neurologist Dr. Nguyen. Related Data Home Medications ?Medication ?Instructions ?Recorded ?Confirmed desogestrel 0.15 mg-ethinyl 1 tab PO QDAY 08/08/20 05/22/25 estradiol 0.03 mg tablet (Enskyce) Previous Rx's ?Medication ?Instructions ?Recorded blood pressure test kit-medium #1 ea 05/23/25 famotidine 20 mg tablet (Pepcid) 20 mg PO BID allergic reaction #20 06/07/25 tabs Allergies Allergy/AdvReac Type Severity Reaction Status Date / Time No Known Allergies Allergy Unknown Verified 07/14/25 13:44 Review of Systems Review of Systems Systems Reviewed: All systems reviewed, normal except as documented Past Medical History Past Medical History NEUROLOGIC: Positive Seizures (unknown etiology, first 05/2025) Social History SMOKING STATUS: Never smoker SUBSTANCE USE: does not use ALCOHOL: Never ED Exam Narrative Physical exam: GENERAL APPEARANCE: alert and oriented x 4, well-developed, well-nourished, no acute distress VITALS: All vitals were reviewed and the pulse ox is 97% on room air, which is normal according to my interpretation. HEENT: Normocephalic, atraumatic; abrasion noted on the left side of the tongue without active bleeding; mucous membranes pink and moist; pupils equal, round, reactive to light; EOMI NECK: Supple LUNGS: CTABL; no wheezes, no rales, no rhonchi HEART: Regular rate, regular rhythm; normal S1, S2; no murmurs ABDOMEN: non distended; normal BS; soft, no tenderness, no guarding, no rebound; no masses, no organomegaly, no hernia BACK: no CVA tenderness EXTREMITIES: atraumatic; no edema NEUROLOGIC: awake; alert and oriented x4; cranial nerves II-XII grossly intact; no focal sensory or motor deficits PSYCHIATRIC: appropriate mood and affect SKIN: warm, dry, normal color; no rashes Course Quality Measures none Orders Category Date Time Status CBC Stat Lab 07/14/25 13:50 Completed CMP [Comprehensive Metabolic Panel] Stat Lab 07/14/25 13:50 Completed Magnesium Stat Lab 07/14/25 13:50 Completed UA, C/S IF [Urinalysis, C/S if Indicated] Stat Lab 07/14/25 13:40 Ordered Acetaminophen Tab [Tylenol ES Tab] Med 07/14/25 14:40 Discontinued 500 mg PO X1 ONE levETIRAcetam LIQD [Keppra] Med 07/14/25 14:40 Discontinued 500 mg PO X1 ONE Vital Signs Vital signs: Vital Signs Temperature 98.5 F 07/14/25 13:41 Pulse Rate 134 H 07/14/25 13:41 Respiratory Rate 18 07/14/25 13:41 Blood Pressure 128/76 07/14/25 13:41 Pulse Oximetry (%) 97 07/14/25 13:41 Oxygen Delivery Method Room Air 07/14/25 13:41 Seizure MDM Narrative MDM Narrative:: I, Margarita Sarah am scribing for and in the presence of Dr. Sanchez. Patient data External records reviewed:: [facility] previous records and EMS form Clinical information provided by:: patient and EMS Social determinants that could affect healthcare access:: none Patient has the following chronic illnesses:: Seizure disorder, compliant with her Keppra, and has a seizure about once per month; she follows with neurologist Dr. Nguyen. How is presenting disease/condition affected by chronic disease/condition?: caused by Evaluation data The following diagnostics were reviewed and interpreted by me:: lab results Lab and/or radiology exams considered but not ordered:: none Interpretation Summary: Recurrent seizures Medications / Prescriptions Medications or Prescriptions considered but not ordered:: none Medication administrations:: Medication Administration History Discontinued Medications Acetaminophen (Acetaminophen 500 Mg Tablet) 500 mg PO X1 ONE Stop: 07/14/25 14:41 Last Admin: 07/14/25 15:15 Dose: 500 mg Documented By: BD Levetiracetam (Levetiracetam Liqd 500 Mg/5 Ml Udc) 500 mg PO X1 ONE Stop: 07/14/25 14:41 Last Admin: 07/14/25 15:15 Dose: 500 mg Documented By: BD see above if any Consultations Consultation(s) initiated? (list below): No Diagnosis Seizure Differential Diagnosis: other (Breakthrough seizure, medication-resistant epilepsy, and postictal headache.) Most likely diagnosis given after review of the tests above:: Recurrent seizures Admission Indicated Admission indicated?: not indicated Admission Request Was there a request for admission?: No Disposition Plan Disposition Plan: Discharge Discharge Attestation Discharge Attestation: The patient and all family members were given an opportunity to ask questions and understood the discharge instructions. Discharge instructions specifically effects, indications for sooner follow up or return to the emergency department, and the expected course of current diagnosis. Patient condition: Stable Discharge Plan Plan Patient Disposition: HOME (Self Care) Prescriptions/Referrals Prescriptions/Med Rec: No Action desogestrel-ethinyl estradiol [Enskyce] 0.15-0.03 mg tablet 1 tab PO QDAY famotidine [Pepcid] 20 mg tablet 20 mg PO BID MDD 2 Qty: 20 0RF (DME) blood pressure test kit-medium Kit See Rx Instructions .Route Qty: 1 0RF Rx Instructions: As directed Referrals: Leola Acevedo PA-C [Primary Care Provider] - In 1 week Problem List Clinical Impression: Recurrent seizures Patient/Caregiver Discharge Instructions Education Materials: ED Seizure, Recurrent (Adult) Print Language: Slovak Stand Alone Forms: Deepika Award Info., Patient Portal Info Letter
[2025-07-14 13:41] VITALS: BP 128/76; PULSE 134; RESP 18; TEMP 36.9; O2SAT 97
[2025-07-14 14:03] LABS: Basophils # (Auto) 0.0 Thou/mm3 (0.0-0.2); Basophils % (Auto) 0 % (0-2.5); Eosinophils # (Auto) 0.1 Thou/mm3 (0.0-0.5); Eosinophils % (Auto) 1 % (0-10); Hematocrit 37.9 % (36.0-46.0); Hemoglobin 12.0 g/dL (12.0-16.0); Immature Granulocytes Auto 0.01 Thou/mm3 (0.00-0.00); Lymphocytes # (Auto) 2.5 Thou/mm3 (1.0-4.8); Lymphocytes % (Auto) 36 % (10-50); Mean Corpuscular HGB Conc 31.7 g/dl (31.0-37.0); Mean Corpuscular Hemoglobin 24.4 pg (25.0-35.0); Mean Corpuscular Volume 77 fL (80-100); Monocytes # (Auto) 0.6 Thou/mm3 (0.0-0.8); Monocytes % (Auto) 9 % (0-12); Neutrophils # (Auto) 3.7 Thou/mm3 (1.8-7.7); Neutrophils % (Auto) 54 % (37-80); Nucleated Red Blood Cell # 0.00 Thou/mm3 (0.00-0.00); Nucleated Red Blood Cell % 0 /100 WBC (0); Platelet Count 248 Thou/mm3 (140-440); RDW Standard Deviation 37.2 fL (36.4-46.3); Red Blood Count 4.92 Miln/mm3 (4.00-5.20); White Blood Count 6.9 Thou/mm3 (3.6-11.0)
[2025-07-14 14:36] LABS: Alanine Aminotransferase 11 U/L (10-49); Albumin, Serum 4.3 gm/dL (3.5-5.0); Albumin/Globulin Ratio 1.4 (1.2-2.2); Alkaline Phosphatase 126 U/L (46-116); Anion Gap 11 (7-16); Aspartate Amino Transferase 16 U/L (0-34); BUN/Creatinine Ratio 20 Ratio (12-20); Bilirubin,Total 0.2 mg/dL (0.3-1.2); Blood Urea Nitrogen 8 mg/dL (9-23); Calcium 9.1 mg/dL (8.3-10.6); Calcium (Corrected) 9.1 mg/dL (8.5-10.1); Carbon Dioxide 22.2 mMol/L (20.0-31.0); Chloride 107 mMol/L (98-107); Creatinine (Component) 0.4 mg/dL (0.6-1.3); Estimated Creatinine Clearance 183.1 mL/min (>60); Globulin 3.0 gm/dL (2.3-3.5); Glucose 111 mg/dL (74-106); Magnesium 2.0 mg/dL (1.6-2.6); Osmolality,Calculated 278 (275-295); Potassium 3.7 mMol/L (3.4-5.1); Sodium 140 mMol/L (136-145); Total Protein 7.3 gm/dL (5.7-8.2); eGFR > 60 See Note
[2025-07-14 15:00] VITALS: BP 87/55; PULSE 89; RESP 16; TEMP 36.9; O2SAT 96
[2025-07-14] MEDS: levETIRAcetam LIQD 500 MG/5 ML UDC PO (15:15)
[2025-07-14] MEDS: ACETAMINOPHEN 500 MG TABLET PO (15:15)
[2025-07-14 17:00] VITALS: BP 110/65; PULSE 92; RESP 16; TEMP 36.9; O2SAT 96
[2025-07-14 17:53] VITALS: PULSE 118; RESP 18; O2SAT 99
== END 2025-07-14 17:56 | disposition home or self-care (01) ==
PROVIDERS: Emergency Provider Emergency Medicine; PCP Physician Assistant
DX: G40.909 Epilepsy, unspecified, not intractable, without status epilepticus (principal)
CPT/HCPCS: 36415; 80053; 81001; 83735; 85025; 99283; A9270

== ENCOUNTER 2025-08-20 12:02 | Inpatient (IN) | payer MEDICAID, SELFPAY ==
--- NOTE | 2025-08-20 12:40 | XR_ITS ---
EXAMINATION: CT soft tissue neck w con COMPARISON: 05/21/2025, ultrasound thyroid. 09/28/2024, CT soft tissue neck. 05/21/2025, CT cervical spine. Findings: 3 mm axial sections were obtained through the neck following intravenous contrast enhancement according to routine protocol. 2D and 3D reconstructions created on a separate workstation and submitted for interpretation. Institutional dose reduction protocols were utilized. The [place] tonsils are significantly enlarged, and touching midline with impingement of the oropharyngeal airway. While no discrete rim-enhancing fluid collection is identified, both are heterogeneous, and on the left side there is a 0.9 x 0.6 x 1.4 cm area of decreased density within the lateral aspect of the tonsil, series 3 image 13 and series 5 image 33. There are prominent cervical chain lymph nodes, not abnormally enlarged by imaging criteria. Cervical jugular and carotid arteries appear grossly patent. Thyroid gland is enlarged and hypervascular. The left aspect of the epiglottis appears to be thickened. This appears similar to prior imaging 09/28/2024 and 05/21/2025. There is moderate mucosal thickening of the partially visualized bilateral maxillary sinuses. Mastoid air cells are clear. There is a 4 mm groundglass opacity in the right upper lobe, series 9 image 95. This appears grossly similar to prior imaging. Along the anterior mediastinum is mildly convex thickened tissue in the expected region of the thymus measuring up to 2.2 cm from the ascending aorta anteriorly. Partially visualized intracranial contents unremarkable. Bovine arch variant. Impression: 1. Significantly enlarged [place] tonsils which touch midline and impinge on the oropharyngeal airway with phlegmonous left greater than right changes. No rim-enhancing drainable fluid collection identified. Attention to possible airway compromise. 2. Thickened left aspect of the epiglottis, grossly similar appearing to prior imaging. This may be positional or a different chronic finding, but developing epiglottitis cannot be excluded. Attention to possible airway compromise. 3. Findings which can be seen with thyroiditis. 4. Prominent soft tissue density anterior mediastinum, greater than expected for age. Differential includes prominent residual thyroid tissue, thymoma, neoplasm. Recommend correlation with history, physical exam, and MR chest. 5. Probably reactive cervical chain lymph nodes. Attention on follow-up. Discussed with Dr. Celaya of the Emergency Room 08/20/2025, 1545 hours via phone. She expressed understanding.
[2025-08-20 12:41] VITALS: BP 146/95; PULSE 120; RESP 19; TEMP 36.9; O2SAT 98; BMI 30.4
--- NOTE | 2025-08-20 12:41 | PD.EDRME ---
Rapid Medical Screening Exam RME Arrival date/time: 08/20/25 12:02 30-year-old female with no known medical history presents to the emergency room with a chief complaint of a sore throat, shortness of breath, difficulty swallowing, fevers x 3 days I have greeted and performed a focused initial assessment of this patient. A comprehensive ED assessment and evaluation of the patient, analysis of all test results, and completion of the medical decision making process will be conducted by additional ED providers. Chief Complaint: Flu Like Symptoms Time Seen by Provider: 08/20/25 12:24 Vital signs reviewed by provider: Yes Exam: The patient has a swollen erythemic posterior pharynx with bilateral tonsillar exudates and tonsillomegaly Clear bilateral lung sounds Clinical Impression: Peritonsillar abscess/pharyngitis
[2025-08-20] MEDS: ACETAMINOPHEN 500 MG TABLET 1000 MG PO (12:57)
[2025-08-20] MEDS: DEXAMETHASONE SOD PHOS INJ 10 MG/ML VIAL IM (12:57)
[2025-08-20 13:14] LABS: Lactate (Lactic Acid) 1.3 mMol/L (0.4-2.0)
[2025-08-20 13:15] LABS: Basophils # (Auto) 0.0 Thou/mm3 (0.0-0.2); Basophils % (Auto) 0 % (0-2.5); Eosinophils # (Auto) 0.0 Thou/mm3 (0.0-0.5); Eosinophils % (Auto) 0 % (0-10); Hematocrit 39.1 % (36.0-46.0); Hemoglobin 12.4 g/dL (12.0-16.0); Immature Granulocytes Auto 0.02 Thou/mm3 (0.00-0.00); Lymphocytes # (Auto) 2.4 Thou/mm3 (1.0-4.8); Lymphocytes % (Auto) 21 % (10-50); Mean Corpuscular HGB Conc 31.7 g/dl (31.0-37.0); Mean Corpuscular Hemoglobin 24.7 pg (25.0-35.0); Mean Corpuscular Volume 78 fL (80-100); Monocytes # (Auto) 1.0 Thou/mm3 (0.0-0.8); Monocytes % (Auto) 9 % (0-12); Neutrophils # (Auto) 7.9 Thou/mm3 (1.8-7.7); Neutrophils % (Auto) 70 % (37-80); Nucleated Red Blood Cell # 0.00 Thou/mm3 (0.00-0.00); Nucleated Red Blood Cell % 0 /100 WBC (0); Platelet Count 272 Thou/mm3 (140-440); RDW Standard Deviation 39.6 fL (36.4-46.3); Red Blood Count 5.03 Miln/mm3 (4.00-5.20); White Blood Count 11.3 Thou/mm3 (3.6-11.0)
[2025-08-20 13:19] LABS: Strep A Rapid Positive (Negative)
[2025-08-20 14:01] LABS: Alanine Aminotransferase 15 U/L (10-49); Albumin, Serum 4.7 gm/dL (3.5-5.0); Albumin/Globulin Ratio 1.3 (1.2-2.2); Alkaline Phosphatase 119 U/L (46-116); Anion Gap 12 (7-16); Aspartate Amino Transferase 14 U/L (0-34); BUN/Creatinine Ratio 10 Ratio (12-20); Bilirubin,Total 0.4 mg/dL (0.3-1.2); Blood Urea Nitrogen < 5 mg/dL (9-23); Calcium 9.2 mg/dL (8.3-10.6); Calcium (Corrected) 9.2 mg/dL (8.5-10.1); Carbon Dioxide 20.2 mMol/L (20.0-31.0); Chloride 103 mMol/L (98-107); Creatinine (Component) 0.5 mg/dL (0.6-1.3); Estimated Creatinine Clearance 151.7 mL/min (>60); Globulin 3.5 gm/dL (2.3-3.5); Glucose 93 mg/dL (74-106); Osmolality,Calculated 267 (275-295); Potassium 3.8 mMol/L (3.4-5.1); Procalcitonin 0.06 ng/ml (0.0-0.49); Sodium 135 mMol/L (136-145); Total Protein 8.2 gm/dL (5.7-8.2); eGFR > 60 See Note
[2025-08-20] MEDS: CLINDAMYCIN 900MG IVPB 900 MG in PRE-MIXED 1 BAG 50 MG IV (16:10)
[2025-08-20 16:15] VITALS: BP 129/84; PULSE 113; RESP 18; TEMP 36.8; O2SAT 99
--- NOTE | 2025-08-20 16:18 | PC.CC ---
Addendum entered by Peter Nagy RN 08/20/25 17:40: received call from Mariana samuels/ [facility], she stated she spoke to Dr. Celaya to inform her that pt can follow up as outpatient. Confirmed with Dr. Celaya that patient can follow up as outpatient and to cancel transfer request. Addendum entered by Peter Nagy RN 08/20/25 17:08: received call from Tate samuels/ [facility], per ENT Dr. Rodriguez, tonsils not severly enlarged, no peritonsilar abscess, no surgical intervention, no need for transfer. Pt can be treated with IV abx Ampicillan Sulbactrim and Dexamethasone. Pt can follow up with him on Tuesday08/26/25 at 1130 am at the [address] [phone][address] [facility] will send referral to clinic. Addendum entered by Peter Nagy RN 08/20/25 16:50: Received call back from Mariana samuels/ [facility]. she obtained patient information. Conference call w/ Dr. Celaya completed. She will confirm receipt of images and present to team. Addendum entered by Peter Nagy RN 08/20/25 16:28: called [facility], spoke to Tate. Conference call with Tate and Dr. Celaya completed. She will present to ENT and call back. Addendum entered by Peter Nagy RN 08/20/25 16:21: called [facility], spoke to Mariana. She stated she will call back Original Note: received call from Dr. Celaya for transfer request for ENT/OMFS for enlarged [place] tonsils which touch midline and impinge on the oropharyngeal airway with phlegmonous left greater than right changes. Clinicals sent to [facility] and [facility]. Images sent to [facility]
--- NOTE | 2025-08-20 16:27 | PD.EDADULT ---
ED General RME/HPI General Chief complaint: Flu Like Symptoms Stated complaint: FEVER, COUGH, CONGESTION, N/V Time Seen by Provider: 08/20/25 12:24 Arrival date/time: 08/20/25 12:02 Limitations: no limitations RME / HPI RME / HPI narrative: 08/20/25 12:02 30-year-old female with no known medical history presents to the emergency room with a chief complaint of a sore throat, shortness of breath, difficulty swallowing, fevers x 3 days I have greeted and performed a focused initial assessment of this patient. A comprehensive ED assessment and evaluation of the patient, analysis of all test results, and completion of the medical decision making process will be conducted by additional ED providers. DR. MIRANDA MAIN ED EVALUATION 30 year old female with history of hyperthyroidism and seizures presents to the ED for evaluation of sore throat, difficulty swallowing, slight difficulty breathing, and fevers beginning 3 days ago. Reports she had experienced similar symptoms September of this month and during that time transferred to [facility] in [place] for tonsilar abscess. States while in [place] the abscess was drained, given antibiotics. Also states they discussed removing the tonsils. However, states she refused during that time. Denies any recent antibiotic use. Denies cough or vomiting. Exam: The patient has a swollen erythemic posterior pharynx with bilateral tonsillar exudates and tonsillomegaly Clear bilateral lung sounds Impression: Peritonsillar abscess/pharyngitis Related Data Home Medications ?Medication ?Instructions ?Recorded ?Confirmed desogestrel 0.15 mg-ethinyl 1 tab PO QDAY 08/08/20 08/20/25 estradiol 0.03 mg tablet (Enskyce) gabapentin 300 mg capsule 300 mg PO HS 08/20/25 08/20/25 levetiracetam 500 mg tablet 500 mg PO BID 08/20/25 08/20/25 methimazole 10 mg tablet 10 mg PO BID 08/20/25 08/20/25 propranolol 10 mg tablet 10 mg PO TID 08/20/25 08/20/25 Previous Rx's ?Medication ?Instructions ?Recorded blood pressure test kit-medium #1 ea 05/23/25 famotidine 20 mg tablet (Pepcid) 20 mg PO BID allergic reaction #20 06/07/25 tabs amoxicillin 875 mg-potassium 1 tab PO BID group A strep 08/22/25 clavulanate 125 mg tablet tonsilitis 11 days #22 tabs Allergies Allergy/AdvReac Type Severity Reaction Status Date / Time No Known Allergies Allergy Unknown Verified 07/14/25 13:44 Review of Systems Review of Systems Systems Reviewed: All systems reviewed, normal except as documented Past Medical History Past Medical History NEUROLOGIC: Positive Seizures CARDIAC: Positive Cardiac Disorders ENT: Positive History of ENT Problems (STREP THROAT) ENDOCRINE: Positive Hyperthyroidism Surgical History SURGICAL: Positive Ear Surgery Social History SMOKING STATUS: Never smoker SUBSTANCE USE: does not use ED Exam General Limitations: Present no limitations General appearance: Present alert and in no apparent distress Head Head exam: Present atraumatic Eye Eye exam: Present normal appearance, PERRL and EOMI ENT ENT exam: Present mucous membranes moist and other (cryptic tonsils with material bilaterally, uvula is midline, no swelling below the tongue, no drooling) Neck Neck exam: Present normal inspection, full ROM and trachea midline Chest Chest inspection: Present normal inspection and symmetric chest wall rise Respiratory Respiratory exam: Present normal lung sounds bilaterally Cardiovascular Cardiovascular exam: Present regular rate, normal rhythm and normal heart sounds Extremities Exam Extremities exam: Present normal inspection Neurological Exam Neurological exam: Present alert and oriented X3 Psychiatric Psychiatric exam: Present normal affect and normal mood Skin Skin exam: Present warm, dry, intact and normal color Course Quality Measures none Orders Category Date Time Status Admit to Inpatient Status Routine Admission 08/20/25 18:26 Active Patient Condition Routine Admission 08/20/25 18:26 Ordered COVID-19 Screening Questionnaire NOW Care 08/20/25 18:[address] Screening NOW Care 08/20/25 12:40 Completed Miscellaneous Nursing Order NOW Care 08/20/25 18:19 Completed Notify provider NEEDED Care 08/20/25 18:26 Completed Referral - Electrical Maintenance Worker Stat Cons 08/20/25 15:[address] soft tissue neck w con Stat Exams 08/20/25 12:40 Completed Basic Metabolic Panel AM DRAW Lab 08/21/25 04:54 Completed Basic Metabolic Panel AM DRAW Lab 08/22/25 04:31 Completed CBC AM DRAW Lab 08/21/25 04:54 Completed CBC AM DRAW Lab 08/22/25 04:31 Completed CBC Stat Lab 08/20/25 12:56 Completed CMP [Comprehensive Metabolic Panel] Stat Lab 08/20/25 12:56 Completed Lactate (Lactic Acid) Stat Lab 08/20/25 12:56 Completed Magnesium AM DRAW Lab 08/21/25 04:54 Completed Magnesium AM DRAW Lab 08/22/25 04:31 Completed PT [Prothrombin Time with INR] Stat Lab 08/20/25 12:56 Completed Phosphorous AM DRAW Lab 08/21/25 04:54 Completed Phosphorous AM DRAW Lab 08/22/25 04:31 Completed Procalcitonin Stat Lab 08/20/25 12:56 Completed Strep A Rapid Stat Lab 08/20/25 13:00 Completed Thyroid Stimulating Hormone AM DRAW Lab 08/21/25 04:54 Completed Acetaminophen Tab [Tylenol ES Tab] Med 08/20/25 12:40 Discontinued 1,000 mg PO X1 ONE Acetaminophen Tab [Tylenol Tab] Med 08/20/25 18:24 Discontinued 650 mg PO Q6H PRN Amoxicillin Susp [Amoxil Susp] Med 08/20/25 16:26 Discontinued 1,000 mg PO X1 ONE Ampicillin/Sulbac Inj [Unasyn Inj] 3 gm Med 08/21/25 00:00 Discontinued Sodium Chloride 0.9% (Pop) [NS 0.9% mini bag] 100 ml IV Q6HR Clindamycin 900Mg Ivpb [Cleocin/D5w Ivpb] 900 mg Med 08/20/25 15:49 Discontinued Pre-Mixed [Pre-mixed Bag] 1 bag IV X1 Dexamethasone Inj [Decadron Inj] Med 08/20/25 12:40 Discontinued 10 mg IM X1 ONE Dexamethasone Inj [Decadron Inj] Med 08/21/25 09:00 Discontinued 10 mg IVP QDAY Enoxaparin [Lovenox] Med 08/21/25 09:00 Discontinued 40 mg SC QDAY Ondansetron Inj [Zofran Inj] Med 08/20/25 18:24 Discontinued 4 mg IVP Q6H PRN levETIRAcetam [Keppra] Med 08/20/25 21:00 Discontinued 500 mg PO BID Code Status Routine Oth 08/20/25 18:24 Completed Vital Signs Vital signs: Vital Signs Temperature 98.4 F 08/20/25 12:41 Pulse Rate 120 H 08/20/25 12:41 Respiratory Rate 19 08/20/25 12:41 Blood Pressure 146/95 H 08/20/25 12:41 Pulse Oximetry (%) 98 08/20/25 12:41 Oxygen Delivery Method Room Air 08/20/25 12:41 Pulse ox is 98% on room air which is adequate. Critical Care Time Critical Care Time Critical Care Time: Yes Total Critical Care Time (min.): 36 Attestation: Due to a high probability of clinically significant, life threatening deterioration, the patient required my highest level of preparedness to intervene emergently and I personally spent this critical care time directly and personally managing the patient. This critical care time included obtaining a history; examining the patient; pulse oximetry; ordering and review of studies; arranging urgent treatment with development of a management plan; evaluation of patient's response to treatment; frequent reassessment; and, discussions with other providers. This critical care time was performed to assess and manage the high probability of imminent, life-threatening deterioration that could result in multi-organ failure. It was exclusive of separately billable procedures and treating other patients and teaching time. Please see MDM section and the rest of the note for further information on patient assessment and treatment. Discharge Plan Plan Patient Disposition: Admit Acute Care w/in Hospital Patient condition on transfer: Stable Problem List Clinical Impression: Infection of tonsil, Strep pharyngitis Patient/Caregiver Discharge Instructions Discharge Activity: activity as tolerated MDM Narrative MDM hospital course (for use when minimal MDM required): IHazel, armin scribing for and in the presence of Dr. Miranda. Patient presents with sore throat and swelling. VS and exam as listed. Ordered labs, CT neck, medications for symptom relief. Labs with leukocytosis, patient is strep +. Abx provided. Patient CT with enlarged palatine tonsils impinge on oropharyngeal airway with phlegmonous changes. possible developing epiglotittis. Prominent anterior mediastinum tissue. Given findings initiated transfer for ENT, OMFS. Patient is not in any distress at this time. Breathing comfortably, no drooling, tripoding, stridor. 1625p: I spoke with transfer nurse at [facility]. Discussed patients PMHx, HPI, ED course, exam findings, labs, and radiology results. State they will present the case to their team. 1645p: I spoke with transfer nurse at [facility]. Discussed patients PMHx, HPI, ED course, exam findings, labs, and radiology results. State they will present the case to their team. 1618p: Made aware by Lauren, our transfer nurse, who states [facility] ENT has declined transfer. They recommend IV antibiotics and Dexamethasone. 1624p: I spoke with [facility] transfer nurse. State their ENT has refused transfer. They recommend Unasyn. 1627p: I spoke with hospitalist team A for admission. Due to a high probability of clinically significant, life threatening deterioration, the patient required my highest level of preparedness to intervene emergently and I personally spent this critical care time directly and personally managing the patient. This critical care time included obtaining a history; examining the patient; pulse oximetry; ordering and review of studies; arranging urgent treatment with development of a management plan; evaluation of patient's response to treatment; frequent reassessment; and, discussions with other providers. This critical care time was performed to assess and manage the high probability of imminent, life-threatening deterioration that could result in multi-organ failure. It was exclusive of separately billable procedures and treating other patients and teaching time. Please see MDM section and the rest of the note for further information on patient assessment and treatment. Clinical Information Provided by: patient Medical Records reviewed [facility] Meds/Rx considered, not ordered None Labs/Rad/Tests considered, not ordered None Chronic Illness/Social Conditions which may negatively complicate care or outcome(s)-explain: None or not applicable EKG EKG not done Labs Labs: interpreted by me and see narrative above Imaging Imaging Interpretation(s): Ordering Physician: Bunny Villanueva Date of Service: 08/20/25 Procedure(s): CT soft tissue neck w con Accession Number(s): [id number] cc: Leola Acevedo PA-C; Juan Luna MD; Bunny Villanueva~ EXAMINATION: CT soft tissue neck w con COMPARISON: 05/21/2025, ultrasound thyroid. 09/28/2024, CT soft tissue neck. 05/21/2025, CT cervical spine. Findings: 3 mm axial sections were obtained through the neck following intravenous contrast enhancement according to routine protocol. 2D and 3D reconstructions created on a separate workstation and submitted for interpretation. Institutional dose reduction protocols were utilized. The [place] tonsils are significantly enlarged, and touching midline with impingement of the oropharyngeal airway. While no discrete rim-enhancing fluid collection is identified, both are heterogeneous, and on the left side there is a 0.9 x 0.6 x 1.4 cm area of decreased density within the lateral aspect of the tonsil, series 3 image 13 and series 5 image 33. There are prominent cervical chain lymph nodes, not abnormally enlarged by imaging criteria. Cervical jugular and carotid arteries appear grossly patent. Thyroid gland is enlarged and hypervascular. The left aspect of the epiglottis appears to be thickened. This appears similar to prior imaging 09/28/2024 and 05/21/2025. There is moderate mucosal thickening of the partially visualized bilateral maxillary sinuses. Mastoid air cells are clear. There is a 4 mm groundglass opacity in the right upper lobe, series 9 image 95. This appears grossly similar to prior imaging. Along the anterior mediastinum is mildly convex thickened tissue in the expected region of the thymus measuring up to 2.2 cm from the ascending aorta anteriorly. Partially visualized intracranial contents unremarkable. Bovine arch variant. Impression: 1. Significantly enlarged [place] tonsils which touch midline and impinge on the oropharyngeal airway with phlegmonous left greater than right changes. No rim-enhancing drainable fluid collection identified. Attention to possible airway compromise. 2. Thickened left aspect of the epiglottis, grossly similar appearing to prior imaging. This may be positional or a different chronic finding, but developing epiglottitis cannot be excluded. Attention to possible airway compromise. 3. Findings which can be seen with thyroiditis. 4. Prominent soft tissue density anterior mediastinum, greater than expected for age. Differential includes prominent residual thyroid tissue, thymoma, neoplasm. Recommend correlation with history, physical exam, and MR chest. 5. Probably reactive cervical chain lymph nodes. Attention on follow-up. Discussed with Dr. Miranda of the Emergency Room 08/20/2025, 1545 hours via phone. She expressed understanding. Dictated By: Juan Luna MD Signed By: <Electronically signed by Juan Luna MD in [place]> 08/20/25 1550 Medication Administration(s) Medication Administration History Discontinued Medications Acetaminophen (Acetaminophen 500 Mg Tablet) 1,000 mg PO X1 ONE Stop: 08/20/25 12:41 Last Admin: 08/20/25 12:57 Dose: 1,000 mg Documented By: OA Acetaminophen (Acetaminophen 325 Mg Tablet) 650 mg PO Q6H PRN PRN Reason: Fever >100.4 or pain 1-3 Stop: 09/19/25 18:23 Amoxicillin (Amoxicillin Susp 250 Mg/5 Ml Udc) 1,000 mg PO X1 ONE Stop: 08/20/25 16:27 Last Admin: 08/20/25 16:45 Dose: 1,000 mg Documented By: JERICA Dexamethasone Sodium Phosphate (Dexamethasone Sod Phos Inj 10 Mg/Ml Vial) 10 mg IM X1 ONE Stop: 08/20/25 12:41 Last Admin: 08/20/25 12:57 Dose: 10 mg Documented By: RAJEEV Dexamethasone Sodium Phosphate (Dexamethasone Sod Phos Inj 10 Mg/Ml Vial) 10 mg IVP QDAY [facility] Stop: 09/20/25 08:59 Enoxaparin Sodium (Enoxaparin Sod Inj 40 Mg/0.4 Ml Syringe) 40 mg SC QDAY [facility] Stop: 09/04/25 08:59 Last Admin: 08/22/25 08:18 Dose: 40 mg Documented By: Admin: 08/21/25 09:38 Dose: 40 mg Documented By: RENATA Famotidine (Famotidine 20 Mg Tablet) 20 mg PO QDAY [facility] Stop: 09/20/25 08:59 Last Admin: 08/22/25 08:18 Dose: 20 mg Documented By: Admin: 08/21/25 09:40 Dose: 20 mg Documented By: RENATA Gabapentin (Gabapentin 300 Mg Capsule) 300 mg PO HS [facility] Stop: 09/20/25 20:59 Last Admin: 08/21/25 20:33 Dose: 300 mg Documented By: Gabapentin (Gabapentin 300 Mg Capsule) 300 mg PO X1 ONE Stop: 08/20/25 22:33 Last Admin: 08/20/25 22:48 Dose: 300 mg Documented By: Clindamycin Phosphate 900 mg/ (IV Miscellaneous Supplies) 50 mls @ 50 mls/hr IV X1 ONE Stop: 08/20/25 16:48 Last Infusion: 08/20/25 17:10 Dose: Infused Documented By: Admin: 08/20/25 16:10 Dose: 50 mls/hr Documented By: JERICA Ampicillin Sodium/Sulbactam (Sodium 3 gm/ Sodium Chloride) 100 mls @ 200 mls/hr IV Q6HR [facility] Stop: 08/28/25 00:00 Last Admin: 08/22/25 11:53 Dose: 200 mls/hr Documented By: Infusion: 08/22/25 06:17 Dose: Infused Documented By: Admin: 08/22/25 05:47 Dose: 200 mls/hr Documented By: Infusion: 08/22/25 00:13 Dose: Infused Documented By: Admin: 08/21/25 23:43 Dose: 200 mls/hr Documented By: Infusion: 08/21/25 18:02 Dose: Infused Documented By: Admin: 08/21/25 17:32 Dose: 200 mls/hr Documented By: Infusion: 08/21/25 12:22 Dose: Infused Documented By: Admin: 08/21/25 11:52 Dose: 200 mls/hr Documented By: Infusion: 08/21/25 05:55 Dose: Infused Documented By: Admin: 08/21/25 05:25 Dose: 200 mls/hr Documented By: Infusion: 08/20/25 23:56 Dose: Infused Documented By: Admin: 08/20/25 23:26 Dose: 200 mls/hr Documented By: Levetiracetam (Levetiracetam 250 Mg Tablet) 500 mg PO BID [facility] Stop: 09/19/25 20:59 Last Admin: 08/22/25 08:18 Dose: 500 mg Documented By: Admin: 08/21/25 20:32 Dose: 500 mg Documented By: Admin: 08/21/25 09:40 Dose: 500 mg Documented By: [email or web address] Admin: 08/20/25 22:13 Dose: 500 mg Documented By: Methimazole (Methimazole 5 Mg Tablet) 10 mg PO TID [facility] Stop: 09/19/25 21:59 Last Admin: 08/22/25 05:46 Dose: 10 mg Documented By: Admin: 08/21/25 21:50 Dose: 10 mg Documented By: Admin: 08/21/25 14:02 Dose: 10 mg Documented By: Admin: 08/21/25 05:29 Dose: 10 mg Documented By: Admin: 08/20/25 22:14 Dose: 10 mg Documented By: Ondansetron HCl (Ondansetron Inj 2 Mg/Ml Inj 2 Ml) 4 mg IVP Q6H PRN; Protocol PRN Reason: NAUSEA OR VOMITING Stop: 09/19/25 18:23 Propranolol HCl (Propranolol 10 Mg Tablet) 10 mg PO TID [facility] Stop: 09/19/25 21:59 Last Admin: 08/22/25 05:46 Dose: 10 mg Documented By: Admin: 08/21/25 21:50 Dose: 10 mg Documented By: Admin: 08/21/25 14:02 Dose: 10 mg Documented By: Admin: 08/21/25 05:29 Dose: 10 mg Documented By: Admin: 08/20/25 22:14 Dose: 10 mg Documented By: See above Diagnosis Diagnoses ruled out and/or further discussions: palatine tonsillar infection strep pharyngitis
[2025-08-20 17:15] LABS: INR 1.1 (0.9-1.3); Prothrombin Time 11.3 Seconds (9.0-12.2)
--- NOTE | 2025-08-20 18:18 | PD.RESHP ---
Documentation for date of: 08/20/25 HPI History of Present Illness Chief complaint: Sore throat, difficulty swallowing, fever History of present illness: 30-year-old female with a past medical history of hyperthyroidism and seizure disorder, presenting with sore throat, difficulty swallowing, mild shortness of breath, and fever for the past 3 days. The symptoms began , progressively worsening, and by today she was unable to get out of bed due to severe throat pain and fatigue. She reports that the sore throat is constant and severe, especially when swallowing. She denies any cough, vomiting, or rhinorrhea. She states that her symptoms are worse when eating and drinking. The patient has a prior history of tonsillar abscess in September 2024, which required transfer to [facility] in [place] for drainage. She was treated with IV antibiotics, and tonsillectomy was discussed, but the patient declined the surgery at that time. The patient denies any recent antibiotic use. She has a history of seizures, last occurring on 07/25/25, which were well-controlled with Keppra 500 mg BID. She has a history of hyperthyroidism diagnosed in April 2025, for which she has been managed with Methimazole and propranolol 10 mg TID. In the ED today, she was found to have swollen tonsils with exudates and tonsillomegaly. A Group A strep rapid test returned positive. CT soft tissue neck revealed enlarged tonsils with some phlegmonous changes, but no abscess collection. She also had a hypervascular thyroid on CT, and the anterior mediastinum showed soft tissue changes, raising concern for a possible thymoma or thyroid tissue anomaly. Past Medical History Hyperthyroidism Seizure disorder Surgical History Tonsillar abscess drainage (September 2024), no tonsillectomy No other significant surgeries Family History Diabetes Mellitus Social History No tobacco, alcohol, or drug use No [id number] supplements Allergies No known drug allergies Exam Vital Signs Temp Pulse Resp BP Pulse Ox O2 Del Method 98.2 F 113 H 18 129/84 99 Room Air 08/20/25 16:15 08/20/25 16:15 08/20/25 16:15 08/20/25 16:15 08/20/25 16:15 08/20/25 16:15 Narrative Exam General: Alert, oriented, fatigued, mild distress from throat pain, no acute respiratory distress HEENT: Swollen, erythematous posterior pharynx with bilateral tonsillar exudates, tonsillomegaly, no uvular deviation, no nasal congestion Neck: Tender anterior cervical lymphadenopathy, no tracheal deviation Cardiovascular: Regular rate and rhythm, normal S1/S2, no murmurs Respiratory: Clear to auscultation bilaterally, no wheezes, no stridor Abdomen: Soft, non-tender, no guarding, no distention Extremities: No edema, no calf tenderness Neurologic: No focal deficits, intact speech, alert and oriented Results: Labs 08/21/25 04:54 08/21/25 04:54 Labs: Short CBC 08/20/25 Range/Units 12:56 WBC 11.3 H (3.6-11.0) Thou/mm3 Hgb 12.4 (12.0-16.0) g/dL Hct 39.1 (36.0-46.0) % Plt Count 272 (140-440) Thou/mm3 BMP 08/20/25 12:56 Sodium 135 L Potassium 3.8 Chloride 103 Carbon Dioxide 20.2 BUN < 5 L Creatinine 0.5 L Glucose 93 Calcium 9.2 Liver Function 08/20/25 Range/Units 12:56 Total Bilirubin 0.4 (0.3-1.2) mg/dL AST 14 (0-34) U/L ALT 15 (10-49) U/L Alkaline Phosphatase 119 H (46-116) U/L Albumin 4.7 (3.5-5.0) gm/dL Quality Measures Quality Measures VTE prophylaxis Medications Home Medications and Allergies Home Medications ?Medication ?Instructions ?Recorded ?Confirmed ?Type desogestrel 0.15 mg-ethinyl 1 tab PO QDAY 08/08/20 08/20/25 History estradiol 0.03 mg tablet (Enskyce) gabapentin 300 mg capsule 300 mg PO HS 08/20/25 08/20/25 History levetiracetam 500 mg tablet 500 mg PO BID 08/20/25 08/20/25 History methimazole 10 mg tablet 10 mg PO BID 08/20/25 08/20/25 History propranolol 10 mg tablet 10 mg PO TID 08/20/25 08/20/25 History Allergies Allergy/AdvReac Type Severity Reaction Status Date / Time No Known Allergies Allergy Unknown Verified 07/14/25 13:44 Visit Medications Discontinued Medications Acetaminophen (Acetaminophen 500 Mg Tablet) 1,000 mg PO X1 ONE Stop: 08/20/25 12:41 Last Admin: 08/20/25 12:57 Dose: 1,000 mg Amoxicillin (Amoxicillin Susp 250 Mg/5 Ml Udc) 1,000 mg PO X1 ONE Stop: 08/20/25 16:27 Last Admin: 08/20/25 16:45 Dose: 1,000 mg Dexamethasone Sodium Phosphate (Dexamethasone Sod Phos Inj 10 Mg/Ml Vial) 10 mg IM X1 ONE Stop: 08/20/25 12:41 Last Admin: 08/20/25 12:57 Dose: 10 mg Clindamycin Phosphate 900 mg/ (IV Miscellaneous Supplies) 50 mls @ 50 mls/hr IV X1 ONE Stop: 08/20/25 16:48 Last Infusion: 08/20/25 17:10 Dose: Infused Assessment & Plan Plan 30-year-old female with a history of hyperthyroidism and seizure disorder presenting with severe sore throat, fever, dysphagia, and positive Group A strep test, with CT neck showing tonsillar enlargement, phlegmonous changes, and possible evolving epiglottitis; currently being managed with IV antibiotics and steroids. #Acute recurrent streptococcal tonsillitis Patient with severe sore throat, fever, dysphagia Positive Group A strep rapid test CT neck showing tonsillar enlargement and possible epiglottitis. Plan: Start IV Unasyn 3 g Q6H Administered Decadron 10 mg IV in ED, reassess in 24 hours the need for more. NPO status for airway protection, advance diet as tolerated # Hyperthyroidism Patient has hyperthyroidism, managed with Methimazole 10 mg TID. Plan: Resume Methimazole 10 mg TID as outpatient Resume Propanolol 10 TID Monitor thyroid function with TSH/FT4 in AM # Seizure Disorder (Controlled with Keppra) Patient's seizures have been controlled, last seizure 07/25/25, on Keppra 500 mg BID. Plan: Continue Keppra 500 mg BID Neurology consult if any concerns regarding seizure recurrence during hospitalization # History of Tonsillar Abscess Patient with prior history of tonsillar abscess in September 2024, drainage completed, tonsillectomy discussed but declined. Plan: No signs of current abscess, monitor for signs of progression or drainage Health Maintenance: DVT Prophylaxis: Lovenox Code Status: Full code Disposition: Admit for ongoing monitoring and antibiotics Diet: NPO until reassessed for airway stability, then advance as tolerated ----- Plan discussed with attending physician Dr. Shai Newman MD PGY-1 Internal Medicine Attending Provider Attestation/Addendum I have examined the patient, reviewed labs and imaging findings, discussed the case with the resident(s), and reviewed entered orders. I agree with the plan of care as outlined in this note, with these additional summaries/recommendations: After examination of the patient and review of the clinical data, I feel that this patient needs admission to the hospital for further treatment and evaluation. Patient is a 30-year-old female with a medical history of seizure disorder and hypothyroidism presents to [facility] emergency department on 08/20/2025 with chief complaints of sore throat, dysphagia, shortness of breath, and fevers. Patient seen at bedside. She reports she has a history of tonsillar abscess that required transfer to [facility] in [place] for surgical intervention. Patient underwent CT of soft tissue neck in the emergency room which revealed significantly enlarged palatine tonsils which touch midline and impinge on the oropharyngeal airway, no ring-enhancing drainable fluid collection, thickened left aspect of epiglottis, thyroiditis prominent soft tissue density anterior mediastinum, and reactive cervical chain lymph nodes. Patient was found to be group A strep positive in the emergency room. Multiple attempts were made in the emergency room to transfer patient to [facility] and [facility] and both ENT specialist recommended conservative management with IV antibiotics and Decadron. Patient has history of hyperthyroidism and continue methimazole and propranolol. Continue home Keppra for seizure disorder. Patient updated on the plan and in agreement. All questions answered to satisfaction. Please see residents note for additional details and management. Dr. Shai MD
[2025-08-20 19:25] VITALS: BP 122/87; PULSE 92; RESP 20; TEMP 36.8; O2SAT 100
[2025-08-20 20:13] LABS: COVID-19 Antigen (In-House) Negative (Negative)
[2025-08-20 20:31] VITALS: BP 122/75; PULSE 92; RESP 17; TEMP 36.2; O2SAT 98; BMI 30.4
[2025-08-20 22:14] VITALS: BP 110/65; PULSE 86
[2025-08-20] MEDS: METHIMAZOLE 5 MG TABLET 10 MG PO (22:14)
[2025-08-20] MEDS: PROPRANOLOL 10 MG TABLET PO (22:14)
[2025-08-20] MEDS: GABAPENTIN 300 MG CAPSULE PO (22:48)
[2025-08-20] MEDS: AMPICILLIN/SULBAC INJ 3 GM in SODIUM CHLORIDE 0.9% (POP) 100 ML IV (23:26)
[2025-08-21] VITALS (9 sets, daily range): BP systolic 109–118; BP diastolic 66–74; PULSE 81–90; RESP 16–20; TEMP 36.1–36.3; O2SAT 96–99
[2025-08-21] MEDS: AMPICILLIN/SULBAC INJ 3 GM in SODIUM CHLORIDE 0.9% (POP) 100 ML IV ×4 (05:25→23:43)
[2025-08-21] MEDS: PROPRANOLOL 10 MG TABLET PO ×3 (05:29→21:50)
[2025-08-21] MEDS: METHIMAZOLE 5 MG TABLET 10 MG PO ×3 (05:29→21:50)
[2025-08-21 05:44] LABS: Basophils # (Auto) 0.0 Thou/mm3 (0.0-0.2); Basophils % (Auto) 0 % (0-2.5); Eosinophils # (Auto) 0.0 Thou/mm3 (0.0-0.5); Eosinophils % (Auto) 0 % (0-10); Hematocrit 36.4 % (36.0-46.0); Hemoglobin 11.6 g/dL (12.0-16.0); Immature Granulocytes Auto 0.01 Thou/mm3 (0.00-0.00); Lymphocytes # (Auto) 1.2 Thou/mm3 (1.0-4.8); Lymphocytes % (Auto) 22 % (10-50); Mean Corpuscular HGB Conc 31.9 g/dl (31.0-37.0); Mean Corpuscular Hemoglobin 24.4 pg (25.0-35.0); Mean Corpuscular Volume 77 fL (80-100); Monocytes # (Auto) 0.3 Thou/mm3 (0.0-0.8); Monocytes % (Auto) 5 % (0-12); Neutrophils # (Auto) 4.2 Thou/mm3 (1.8-7.7); Neutrophils % (Auto) 73 % (37-80); Nucleated Red Blood Cell # 0.00 Thou/mm3 (0.00-0.00); Nucleated Red Blood Cell % 0 /100 WBC (0); Platelet Count 236 Thou/mm3 (140-440); RDW Standard Deviation 38.4 fL (36.4-46.3); Red Blood Count 4.75 Miln/mm3 (4.00-5.20); White Blood Count 5.8 Thou/mm3 (3.6-11.0)
[2025-08-21 06:31] LABS: Anion Gap 10 (7-16); BUN/Creatinine Ratio 15 Ratio (12-20); Blood Urea Nitrogen 6 mg/dL (9-23); Calcium 9.4 mg/dL (8.3-10.6); Carbon Dioxide 22.1 mMol/L (20.0-31.0); Chloride 106 mMol/L (98-107); Creatinine (Component) 0.4 mg/dL (0.6-1.3); Estimated Creatinine Clearance 189.8 mL/min (>60); Free T4 (Free Thyroxine) 3.36 ng/dL (0.89-1.76); Glucose 139 mg/dL (74-106); Magnesium 2.2 mg/dL (1.6-2.6); Osmolality,Calculated 275 (275-295); Phosphorous 3.8 mg/dL (2.4-5.1); Potassium 4.2 mMol/L (3.4-5.1); Sodium 138 mMol/L (136-145); Thyroid Stimulating Hormone < 0.01 uIU/mL (0.55-4.78); eGFR > 60 See Note
[2025-08-21] MEDS: ENOXAPARIN SOD INJ 40 MG/0.4 ML SYRINGE SC (09:38)
[2025-08-21] MEDS: FAMOTIDINE 20 MG TABLET PO (09:40)
--- NOTE | 2025-08-21 13:30 | ESPR_ITS ---
<Statement entered by Anival Plaza MD - 08/21/25 15:49> Patient is seen and examined at bedside. No acute overnight events. Reported that her swallowing became better. Able to tolerate diet well. No further episodes of fever. CT soft tissue neck, patient noted to have prominent soft tissue density anterior mediastinum which is greater than expected for age. Followed up with radiologist, Dr. Ryan and he recommended follow-up on outpatient basis with MR chest with contrast. Will continue current management. Recommended to follow-up on outpatient basis with ENT in view of recurrent episodes of tonsillitis. I have personally seen and examined the patient, agree with residents assessment and plan Patient plan of care was discussed with the attending physician, Dr. Shai Plaza, PGY2 Documentation for date of: 08/21/25 Subjective Subjective Interval history: No acute overnight event. Patient seen this morning states she feels better this morning. Tolerated full liquid diet advancing to dysphagia 1. Exam Vital Signs Temp Pulse Resp BP Pulse Ox O2 Del Method 97.2 F 90 18 109/67 96 Room Air 08/21/25 11:15 08/21/25 11:15 08/21/25 11:15 08/21/25 11:15 08/21/25 11:15 08/21/25 11:15 Narrative Exam General: Alert, oriented, no acute respiratory distress HEENT: Swollen, erythematous posterior pharynx with bilateral tonsillar exudates, tonsillomegaly, no uvular deviation, no nasal congestion Neck: Tender anterior cervical lymphadenopathy, no tracheal deviation Cardiovascular: Regular rate and rhythm, normal S1/S2, no murmurs Respiratory: Clear to auscultation bilaterally, no wheezes, no stridor Abdomen: Soft, non-tender, no guarding, no distention Extremities: No edema, no calf tenderness Neurologic: No focal deficits, intact speech, alert and oriented Objective Labs 08/22/25 04:31 08/22/25 04:31 Labs: Laboratory Results - last 24 hr 08/20/25 08/20/25 08/21/25 12:56 19:39 04:54 WBC 5.8 D RBC 4.75 Hgb 11.6 L Hct 36.4 MCV 77 L MCH 24.4 L MCHC 31.9 RDW Std Deviation 38.4 Plt Count 236 D Neut % (Auto) 73 Lymph % (Auto) 22 [place] % (Auto) 5 Eos % (Auto) 0 Baso % (Auto) 0 Neut # (Auto) 4.2 Lymph # (Auto) 1.2 [place] # (Auto) 0.3 Eos # (Auto) 0.0 Baso # (Auto) 0.0 Immature Gran # (Auto) 0.01 H Absolute Nucleated RBC 0.00 Immature Gran % 0 Nucleated RBC % 0 PT 11.3 INR 1.1 Sodium 135 L 138 Potassium 3.8 4.2 Chloride 103 106 Carbon Dioxide 20.2 22.1 Anion Gap 12 10 BUN < 5 L 6 L Creatinine 0.5 L 0.4 L Estim Creat Clear Calc 151.7 189.8 eGFR > 60 > 60 BUN/Creatinine Ratio 10 L 15 Glucose 93 139 H Calculated Osmolality 267 L 275 Calcium 9.2 9.4 Corrected Calcium 9.2 Phosphorus 3.8 Magnesium 2.2 Total Bilirubin 0.4 AST 14 ALT 15 Alkaline Phosphatase 119 H Total Protein 8.2 Albumin 4.7 Globulin 3.5 Albumin/Globulin Ratio 1.3 Procalcitonin 0.06 TSH < 0.01 L* Free T4 3.36 H SARS-CoV-2 Ag (Rapid) Negative Quality Measures Quality Measures VTE prophylaxis Assessment & Plan Assessment Current Active Medications: Generic Name Dose Route Start Last Admin Trade Name Freq PRN Reason Stop Dose Admin Acetaminophen 650 mg 08/20/25 18:24 Acetaminophen 325 Mg Tablet PO 09/19/25 18:23 Q6H PRN Fever >100.4 or pain 1-3 Dexamethasone Sodium Phosphate 10 mg 08/21/25 09:00 Dexamethasone Sod Phos Inj 10 Mg/Ml Vial IVP 09/20/25 08:59 On Hold: 08/21/25 09:00 QDAY [facility] Enoxaparin Sodium 40 mg 08/21/25 09:00 08/21/25 09:38 Enoxaparin Sod Inj 40 Mg/0.4 Ml Syringe SC 09/04/25 08:59 40 mg QDAY ANDERS Administration Famotidine 20 mg 08/21/25 09:00 08/21/25 09:40 Famotidine 20 Mg Tablet PO 09/20/25 08:59 20 mg QDAY ANDERS Administration Gabapentin 300 mg 08/21/25 21:00 Gabapentin 300 Mg Capsule PO 09/20/25 20:59 HS [facility] Ampicillin Sodium/Sulbactam 100 mls @ 200 mls/hr 08/21/25 00:00 08/21/25 11:52 Sodium 3 gm/ Sodium Chloride IV 08/28/25 00:00 200 mls/hr Q6HR ANDERS Administration Levetiracetam 500 mg 08/20/25 21:00 08/21/25 09:40 Levetiracetam 250 Mg Tablet PO 09/19/25 20:59 500 mg BID ANDERS Administration Methimazole 10 mg 08/20/25 22:00 08/21/25 05:29 Methimazole 5 Mg Tablet PO 09/19/25 21:59 10 mg TID ANDERS Administration Ondansetron HCl 4 mg 08/20/25 18:24 Ondansetron Inj 2 Mg/Ml Inj 2 Ml IVP 09/19/25 18:23 Q6H PRN NAUSEA OR VOMITING Protocol Propranolol HCl 10 mg 08/20/25 22:00 08/21/25 05:29 Propranolol 10 Mg Tablet PO 09/19/25 21:59 10 mg TID ANDERS Administration Plan 30-year-old female with a history of hyperthyroidism and seizure disorder presenting with severe sore throat, fever, dysphagia, and positive Group A strep test, with CT neck showing tonsillar enlargement, phlegmonous changes, and possible evolving epiglottitis; currently being managed with IV antibiotics. #Acute recurrent streptococcal tonsillitis Patient with severe sore throat, fever, dysphagia Positive Group A strep rapid test CT neck showing tonsillar enlargement and possible epiglottitis. Plan: * Continue IV Unasyn 3 g Q6H * Administered Decadron 10 mg IV in ED * Hold Decadron for now # Hyperthyroidism Patient has hyperthyroidism, managed with Methimazole 10 mg TID. TSH <0.01, FT4 3.36. Plan: * Continue Methimazole 10 mg TID * Continue Propanolol 10 TID # Seizure Disorder (Controlled with Keppra) Patient's seizures have been controlled, last seizure 07/25/25, on Keppra 500 mg BID. Plan: * Continue Keppra 500 mg BID * Neurology consult if any concerns regarding seizure recurrence during hospitalization # History of Tonsillar Abscess Patient with prior history of tonsillar abscess in September 2024, drainage completed, tonsillectomy discussed but declined. Plan: * No signs of current abscess, monitor for signs of progression or drainage Health Maintenance: DVT Prophylaxis: Lovenox Code Status: Full code Disposition: Admit for ongoing monitoring and antibiotics Diet: Full liquid --> Dysphagia 1. ----- Plan discussed with attending physician Dr. Gibbons and senior resident Dr. Mela Newman MD PGY-1 Internal Medicine Attending Provider Attestation/Addendum I have examined the patient, reviewed labs and imaging findings, discussed the case with the resident(s), and reviewed entered orders. I agree with the plan of care as outlined in this note, with these additional summaries/recommendations: Patient is a 30-year-old female with a medical history of seizure disorder and hypothyroidism presents to [facility] emergency department on 08/20/2025 with chief complaints of sore throat, dysphagia, shortness of breath, and fevers. Patient seen at bedside. No acute overnight events. Patient continues to endorse throat pain and odynophagia. Patient has a history of tonsillar abscess that required transfer to [facility] in [place] for surgical intervention. Patient underwent CT of soft tissue neck in the emergency room which revealed significantly enlarged palatine tonsils which touch midline and impinge on the oropharyngeal airway, no ring-enhancing drainable fluid collection, thickened left aspect of epiglottis, thyroiditis prominent soft tissue density anterior mediastinum, and reactive cervical chain lymph nodes. Patient was found to be group A strep positive in the emergency room. Multiple attempts were made in the emergency room to transfer patient to [facility] and [facility] and both ENT specialist recommended conservative management with IV antibiotics and Decadron. Patient has history of hyperthyroidism and continue methimazole and propranolol. Continue home Keppra for seizure disorder. Patient updated on the plan and in agreement. All questions answered to satisfaction. Please see residents note for additional details and management. Dr. Shai MD
--- NOTE | 2025-08-21 15:10 | PC.SS ---
Patient is alert/oriented. Patient was able to verify demographics. Patient was admitted for gas tonsilitis. Patient resides with her mother. She is independent with ADL's. Patient has hx: seizure disorder and follows up with Dr. Nguyen. Patient follows up with Dr. Acevedo at [facility]. Last appt. was last tuesday. Pharmacy: [facility]. Discharge plan is to return home with family. Alt medical decision maker: Mother, Bella Lerma,
[2025-08-21] MEDS: GABAPENTIN 300 MG CAPSULE PO (20:33)
[2025-08-22] VITALS: BP 98/67; PULSE 75; RESP 16; TEMP 36.4; O2SAT 99
[2025-08-22 04:00] VITALS: BP 105/64; PULSE 67; RESP 17; TEMP 36.2; O2SAT 99
[2025-08-22 05:46] VITALS: BP 105/64; PULSE 67
[2025-08-22] MEDS: METHIMAZOLE 5 MG TABLET 10 MG PO (05:46)
[2025-08-22] MEDS: PROPRANOLOL 10 MG TABLET PO (05:46)
[2025-08-22] MEDS: AMPICILLIN/SULBAC INJ 3 GM in SODIUM CHLORIDE 0.9% (POP) 100 ML IV ×2 (05:47→11:53)
[2025-08-22 05:59] LABS: Basophils # (Auto) 0.0 Thou/mm3 (0.0-0.2); Basophils % (Auto) 0 % (0-2.5); Eosinophils # (Auto) 0.0 Thou/mm3 (0.0-0.5); Eosinophils % (Auto) 0 % (0-10); Hematocrit 34.6 % (36.0-46.0); Hemoglobin 10.6 g/dL (12.0-16.0); Immature Granulocytes Auto 0.01 Thou/mm3 (0.00-0.00); Lymphocytes # (Auto) 3.9 Thou/mm3 (1.0-4.8); Lymphocytes % (Auto) 54 % (10-50); Mean Corpuscular HGB Conc 30.6 g/dl (31.0-37.0); Mean Corpuscular Hemoglobin 24.0 pg (25.0-35.0); Mean Corpuscular Volume 78 fL (80-100); Monocytes # (Auto) 0.5 Thou/mm3 (0.0-0.8); Monocytes % (Auto) 7 % (0-12); Neutrophils # (Auto) 2.8 Thou/mm3 (1.8-7.7); Neutrophils % (Auto) 39 % (37-80); Nucleated Red Blood Cell # 0.00 Thou/mm3 (0.00-0.00); Nucleated Red Blood Cell % 0 /100 WBC (0); Platelet Count 303 Thou/mm3 (140-440); RDW Standard Deviation 39.8 fL (36.4-46.3); Red Blood Count 4.42 Miln/mm3 (4.00-5.20); White Blood Count 7.2 Thou/mm3 (3.6-11.0)
[2025-08-22 06:19] LABS: Anion Gap 10 (7-16); BUN/Creatinine Ratio 22 Ratio (12-20); Blood Urea Nitrogen 11 mg/dL (9-23); Calcium 8.5 mg/dL (8.3-10.6); Carbon Dioxide 23.0 mMol/L (20.0-31.0); Chloride 110 mMol/L (98-107); Creatinine (Component) 0.5 mg/dL (0.6-1.3); Estimated Creatinine Clearance 151.9 mL/min (>60); Glucose 113 mg/dL (74-106); Magnesium 1.9 mg/dL (1.6-2.6); Osmolality,Calculated 285 (275-295); Phosphorous 4.5 mg/dL (2.4-5.1); Potassium 3.7 mMol/L (3.4-5.1); Sodium 143 mMol/L (136-145); eGFR > 60 See Note
[2025-08-22 07:40] VITALS: BP 108/74; PULSE 92; RESP 17; TEMP 36.2; O2SAT 99
[2025-08-22] MEDS: ENOXAPARIN SOD INJ 40 MG/0.4 ML SYRINGE SC (08:18)
[2025-08-22] MEDS: FAMOTIDINE 20 MG TABLET PO (08:18)
[2025-08-22 12:00] VITALS: BP 112/73; PULSE 79; RESP 17; TEMP 36.2; O2SAT 99
--- NOTE | 2025-08-22 16:09 | ESDS_ITS ---
Planned Discharge Date 08/22/25 DS: Providers Provider Date of admission: 08/20/25 18:30 Primary care physician: Leola Acevedo PA-C Admitting Provider: Enmanuel Gibbons MD Attending Provider on Admission: Enmanuel Gibbons MD Consults: 08/20/25 15:51 Referral - Bail Attacher Stat Service Needed for Transfer: Otolaryngology (ENT) 08/20/25 23:09 Health Equity Referral - Knowledge Deficit Routine Comment: Positive screening for knowledge deficit needs. Attending Provider on DC: Enmanuel Gibbons MD Discharging Provider: Julianne Solano MD DS: Diagnosis Problem List Completed Was Problem List Reviewed/Reconciled?: Yes Hospital Course Hospital Course Hospital course: Reason for hospitalization: Acute streptococcal tonsillitis 30-year-old female with a history of hyperthyroidism and seizure disorder presented to the ED on 08/20/2025 with severe sore throat, fever, dysphagia, and positive Group A strep test, with CT neck showing tonsillar enlargement, phlegmonous changes, and possible evolving epiglottitis. Patient was initially attempted to be transferred by ED for ENT but recommendations from [facility] and [facility] were for the patient to be admitted for treatment with IV antibiotics. Patient was placed on IV Unasyn with rapid improvement of symptoms over the next 48 hours. Patient remained stable on room air without any fear of respiratory compromise and was discharged home on 08/22/2025. Discharge Recommendations: -Follow up with PCP within 1 week of discharge -Please have your PCP review image findings from CT soft tissue neck with contrast taken during your hospital stay. The radiologist recommended a MRI of the chest for the following finding: Prominent soft tissue density anterior mediastinum, greater than expected for age. Differential includes prominent residual thyroid tissue, thymoma, neoplasm. Recommend correlation with history, physical exam, and MR chest -Please follow up with an ENT (ears, nose, throat doctor) obtain a referral if needed for recurrent tonsilitis Per ENT Dr. Rodriguez patient can follow up with him on Tuesday08/26/25 at 11:30 am at the [address] [phone]. [facility] will send referral to clinic. -Please take Augmentin (amoxicillin-clavulanate) antibiotic for 11 more days ending on 09/02/2025 for tonsilitis -Continue rest of medications as previously prescribed -Return to the ED or call EMS if symptoms return and/or worsen. Hospital Diagnoses: #Acute recurrent streptococcal tonsillitis #Hyperthyroidism #Seizure disorder #History of tonsillar abscess Patient plan of care was discussed with the attending physician, Dr. Gibbons. Julianne Solano, PGY-3 Time Spent with Patient Time attestation: Total time spent providing and/or coordinating discharge services: Time spent: Greater than 30 minutes Exam Vital Signs Temp Pulse Resp BP Pulse Ox O2 Del Method 97.1 F 79 17 112/73 99 Room Air 08/22/25 12:00 08/22/25 12:00 08/22/25 12:00 08/22/25 12:00 08/22/25 12:00 08/22/25 12:00 Narrative Exam General: Alert, oriented, no acute respiratory distress HEENT: Clearance of bilateral tonsillar exudates, tonsillomegaly improved, no uvular deviation, no nasal congestion Neck: Tender anterior cervical lymphadenopathy, no tracheal deviation Cardiovascular: Regular rate and rhythm, normal S1/S2, no murmurs Respiratory: Clear to auscultation bilaterally, no wheezes, no stridor Abdomen: Soft, non-tender, no guarding, no distention Extremities: No edema, no calf tenderness Neurologic: No focal deficits, intact speech, alert and oriented Discharge Plan Plan Patient Disposition: HOME (Self Care) Patient condition on transfer: Stable Care Plan Goals: Discharge Recommendations: -Follow up with PCP within 1 week of discharge -Please have your PCP review image findings from CT soft tissue neck with contrast taken during your hospital stay. The radiologist recommended a MRI of the chest for the following finding: Prominent soft tissue density anterior mediastinum, greater than expected for age. Differential includes prominent residual thyroid tissue, thymoma, neoplasm. Recommend correlation with history, physical exam, and MR chest -Please follow up with an ENT (ears, nose, throat doctor) obtain a referral if needed for recurrent tonsilitis -per ENT Dr. Rodriguez patient can follow up with him on Tuesday08/26/25 at 1130 am at the [address] [phone]. [facility] will send referral to clinic. -Please take Augmentin (amoxicillin-clavulanate) antibiotic for 11 more days ending on 09/02/2025 for tonsilitis -Continue rest of medications as previously prescribed -Return to the ED or call EMS if symptoms return and/or worsen. Prescriptions/Referrals Prescriptions/Med Rec: New amoxicillin-pot clavulanate 875-125 mg tablet 1 tab PO BID 11 Days Qty: 22 0RF Continued desogestrel-ethinyl estradiol [Enskyce] 0.15-0.03 mg tablet 1 tab PO QDAY famotidine [Pepcid] 20 mg tablet 20 mg PO BID MDD 2 Qty: 20 0RF (DME) blood pressure test kit-medium Kit See Rx Instructions .Route Qty: 1 0RF Rx Instructions: As directed gabapentin 300 mg capsule 300 mg PO HS Patient Comments: TAKE 1 CAPSULE BY ORAL ROUTE EVERY BEDTIME, SEIZURES levetiracetam 500 mg tablet 500 mg PO BID Patient Comments: TAKE 1 TABLET BY MOUTH EVERY 12 HOURS methimazole 10 mg tablet 10 mg PO BID Patient Comments: TAKE 1 TABLET BY MOUTH 3 TIMES A DAY propranolol 10 mg tablet 10 mg PO TID Patient Comments: TAKE 2 TABLETS BY MOUTH 3 TIMES A DAY Referrals: Leola Acevedo PA-C [Primary Care Provider] Patient/Caregiver Discharge Instructions Discharge Activity: activity as tolerated Education Materials: When You Have a Sore Throat, Tonsillitis in Adults, Strep Throat, ED Pharyngitis, Strep (Confirmed), ED Peritonsillar Inf Strep Throat Print Language: Bulgarian Stand Alone Forms: Deepika Award Info., Patient Portal Info Letter Discharge Order Discharge Orders: Discharge (Routine); Ordered 08/22/25 Ordered By: Julianne Solano Quality Discharge Quality Measures VTE prophylaxis Attestestation MD Attestation I have examined the patient, reviewed labs and imaging findings, discussed the case with the resident(s), and reviewed entered orders. I agree with the plan of care as outlined in this note. Time Spent: [address] Shai MD
== END 2025-08-22 12:42 | disposition home or self-care (01) | DRG 113 ==
LOC: SERX 17:52 → S3SX 08-21 06:06 → SERHOLD 08-21 10:23 → S3SX 08-21 10:23
PROVIDERS: Emergency Medicine; Nurse Practitioner Family; Admitting Provider Student in an Organized Health Care Education/Training Program; Emergency Provider Emergency Medicine; PCP Physician Assistant; Visit Provider Student in an Organized Health Care Education/Training Program
DX: J03.01 Acute recurrent streptococcal tonsillitis (principal); E05.90 Thyrotoxicosis, unspecified without thyrotoxic crisis or storm; R56.9 Unspecified convulsions; Z79.899 Other long term (current) drug therapy; Z79.3 Long term (current) use of hormonal contraceptives
CPT/HCPCS: 36415; 70491; 80048; 80053; 83605; 83735; 84100; 84145; 84439; 84443; 85025; 85610; 87651; 87811; 96365; 96372; 99284; A4649; J0295; J0736; J1100; J1650; Q9967; A9270

== ENCOUNTER 2025-09-01 16:19 | Emergency (ER) | payer MEDICAID, SELFPAY ==
[2025-09-01 16:22] VITALS: BP 141/90; PULSE 120; RESP 18; TEMP 37; O2SAT 96; BMI 28.3
[2025-09-01 16:28] VITALS: PULSE 130; RESP 18; O2SAT 98
--- NOTE | 2025-09-01 16:34 | EDNOTE_ITS ---
ED Seizures RME/HPI General Chief Complaint: Seizure Stated Complaint: SEIZURES Time Seen by Provider: 09/01/25 16:30 Arrival date/time: 09/01/25 16:19 Limitations: no limitations RME / HPI RME / HPI Narrative: 30-year-old female with a history of hyperthyroidism and seizure disorder presented to the ED via ambulance. Had a witnessed seizure by her cousins who called 911. States she has not been feeling herself since she got discharged from the hospital on 08/22. on 08/20/2025 with severe sore throat, fever, dysphagia, and positive Group A strep test, with CT neck showing tonsillar enlargement, phlegmonous changes, and possible evolving epiglottitis. Patient was initially attempted to be transferred by ED for ENT but recommendations from [facility] and [facility] were for the patient to be admitted for treatment with IV antibiotics. Patient was placed on IV Unasyn with rapid improvement of symptoms over the next 48 hours. Patient remained stable on room air without any fear of respiratory compromise and was discharged home on 08/22/2025. States she has been taking her Keppra 500 mg twice a day. Followed by local neurologist. Denies drugs or alcohol that may have triggered. Does not know what may have triggered today's seizure. Related Data Home Medications ?Medication ?Instructions ?Recorded ?Confirmed desogestrel 0.15 mg-ethinyl 1 tab PO QDAY 08/08/20 estradiol 0.03 mg tablet (Enskyce) gabapentin 300 mg capsule 300 mg PO HS 08/20/25 levetiracetam 500 mg tablet 500 mg PO BID 08/20/25 methimazole 10 mg tablet 10 mg PO BID 08/20/25 propranolol 10 mg tablet 10 mg PO TID 08/20/25 Previous Rx's ?Medication ?Instructions ?Recorded blood pressure test kit-medium #1 ea 05/23/25 famotidine 20 mg tablet (Pepcid) 20 mg PO BID allergic reaction #20 06/07/25 tabs amoxicillin 875 mg-potassium 1 tab PO BID group A stre p 08/22/25 clavulanate 125 mg tablet tonsilitis 11 days #22 tabs levetiracetam 1,000 mg tablet 1,000 mg PO BID #60 tabs 12/07/25 (Keppra) lorazepam 1 mg tablet (Ativan) 1 mg PO QDAY PRN seizur e activity 09/01/25 #10 tabs Allergies Allergy/AdvReac Type Severity Reaction Status Date / Time No Known Allergies Allergy Unknown Verified 07/14/25 13:44 Review of Systems Review of Systems Systems Reviewed: All systems reviewed, normal except as documented ENT Ears, Nose, Mouth, and Throat: Reports as per HPI and Reports other (Bit her tongue during seizure) ED Exam General Limitations: Present no limitations General appearance: Present alert and in no apparent distress Head Head exam: Present atraumatic Eye Eye exam: Present normal appearance, PERRL and EOMI ENT ENT exam: Present normal exam, normal oropharynx, mucous membranes moist, TM's normal bilaterally and other (Small laceration to tongue) Neck Neck exam: Present normal inspection, full ROM and trachea midline Chest Chest inspection: Present normal inspection and symmetric chest wall rise Respiratory Respiratory exam: Present normal lung sounds bilaterally Cardiovascular Cardiovascular exam: Present regular rate, normal rhythm and normal heart sounds Abdominal Exam Abdominal exam: Present soft and normal bowel sounds Extremities Exam Extremities exam: Present normal inspection and full ROM Back Exam Back exam: Present normal inspection and full ROM Neurological Exam Neurological exam: Present alert, oriented X3 and CN II-XII intact Psychiatric Psychiatric exam: Present normal affect and normal mood Skin Skin exam: Present warm, dry, intact and normal color Course Quality Measures none Orders Category Date Time Status EKG (ED ONLY) *Do not use* NOW Care 09/01/25 16:50 Completed EKG (ED Only) Stat Exams 09/01/25 16:50 Draft CBC Stat Lab 09/01/25 17:00 Completed CMP [Comprehensive Metabolic Panel] Stat Lab 09/01/25 17:00 Completed COVID-19 Antigen (In-House) Stat Lab 09/01/25 17:33 Completed Drug Screen,Urine Stat Lab 09/01/25 17:20 Completed Influenza A & B Rapid Panel Stat Lab 09/01/25 17:33 Completed Levetiracetam (Keppra)* Stat Lab 09/01/25 17:00 Received Magnesium [Magnesium] Stat Lab 09/01/25 17:00 Completed Strep A Rapid Stat Lab 09/01/25 17:33 Completed UA [Urinalysis] Stat Lab 09/01/25 17:20 Completed levETIRAcetam LIQD [Keppra] Med 09/01/25 19:16 Discontinued 1,000 mg PO X1 ONE Reevaluation(s) Reevaluation #1: Mother now at bedside states before her episode happened had a howling. Took Keppra dose this morning but not this evening. Discussed with patient and mother new course of treatment. States has neurology follow-up tomorrow afternoon at 2 PM Time: 19:00 Vital Signs Vital signs: Vital Signs Temperature 98.6 F 09/01/25 16:22 Pulse Rate 120 H 09/01/25 16:22 Respiratory Rate 18 09/01/25 16:22 Blood Pressure 141/90 H 09/01/25 16:22 Pulse Oximetry (%) 96 09/01/25 16:22 Oxygen Delivery Method Room Air 09/01/25 16:22 PROCEDURES: EKG Interpretation #1: Date of EK09/01/25 Time of EK:50 Rate: 98 Interpretation: Interpreted by me EKG Impression: Normal sinus rhythm and No acute ST-T changes Additional EKG comment: Essentially unchanged EKG compared to May 21, 2025 Seizure Patient data External records reviewed:: [facility] previous records Clinical information provided by:: patient, EMS and family Social determinants that could affect healthcare access:: other (specify) (Seizure disorder was incoherent) Patient has the following chronic illnesses:: Seizures How is presenting disease/condition affected by chronic disease/condition?: caused by Evaluation data The following diagnostics were reviewed and interpreted by me:: lab results Lab and/or radiology exams considered but not ordered:: All labs considered were ordered other than CT scan of head, unlikely to change course of treatment today Interpretation Summary: CBC, CMP, magnesium, Ua wnl ekg wnl Keppra level pending Medications / Prescriptions Medications or Prescriptions considered but not ordered:: Considered IV benzos however patient not Medication administrations:: Medication Administration History Discontinued Medications Levetiracetam (Levetiracetam Liqd 500 Mg/5 Ml [facility] [place] 1,000 mg PO X1 ONE Stop: 09/01/25 19:17 Last Admin: 09/01/25 19:29 Dose: 1,000 mg Documented By: CB None Consultations Consultation(s) initiated? (list below): No Diagnosis Seizure Differential Diagnosis: intractable seizure disorder, focal seizure, generalized seizure, epileptic seizure and status epilepticus Most likely diagnosis given after review of the tests above:: Recurrent seizure Admission Indicated Admission indicated?: not indicated Admission Request Was there a request for admission?: No Disposition Plan Disposition Plan: Discharge Discharge Attestation Discharge Attestation: The patient and all family members were given an opportunity to ask questions and understood the discharge instructions. Discharge instructions specifically effects, indications for sooner follow up or return to the emergency department, and the expected course of current diagnosis. Patient condition: Stable Discharge Plan Plan Patient Disposition: HOME (Self Care) Discharge Disposition comment: f/u with pcp in2-3days Prescriptions/Referrals Prescriptions/Med Rec: New lorazepam [Ativan] 1 mg tablet 1 mg PO QDAY PRN (Reason: seizure activity) Qty: 10 0RF levetiracetam [Keppra] 1,000 mg tablet 1,000 mg PO BID Qty: 60 0RF No Action desogestrel-ethinyl estradiol [Enskyce] 0.15-0.03 mg tablet 1 tab PO QDAY famotidine [Pepcid] 20 mg tablet 20 mg PO BID MDD 2 Qty: 20 0RF (DME) blood pressure test kit-medium Kit See Rx Instructions .Route Qty: 1 0RF Rx Instructions: As directed gabapentin 300 mg capsule 300 mg PO HS Patient Comments: TAKE 1 CAPSULE BY ORAL ROUTE EVERY BEDTIME, SEIZURES levetiracetam 500 mg tablet 500 mg PO BID Patient Comments: TAKE 1 TABLET BY MOUTH EVERY 12 HOURS methimazole 10 mg tablet 10 mg PO BID Patient Comments: TAKE 1 TABLET BY MOUTH 3 TIMES A DAY propranolol 10 mg tablet 10 mg PO TID Patient Comments: TAKE 2 TABLETS BY MOUTH 3 TIMES A DAY amoxicillin-pot clavulanate 875-125 mg tablet 1 tab PO BID 11 Days Qty: 22 0RF Referrals: Leola Acevedo PA-C [Primary Care Provider] - In 1 week Problem List Clinical Impression: Seizure Patient/Caregiver Discharge Instructions Education Materials: ED Seizure, Recurrent (Adult) Print Language: Uruguayan Stand Alone Forms: Deepika Award Info., Patient Portal Info Letter PA/AGATHA Supervising Physician PA/AGATHA Supervising Physician: Dr. Macias
--- NOTE | 2025-09-01 16:50 | EKG_ITS ---
[facility] Test Date: 2025-09-01 Pat Name: HAYDEN DAMON Department: Room: - Gender: Female [employer]ner: : 1995 Requested By: Chhaya Suarez Order Number: [id number] Reading MD: Chhaya Suarez Measurements Intervals [place] Rate: 98 P: 53 VA: 136 QRS: 56 QRSD: 72 T: 41 QT: 344 QTc: 440 Interpretive Statements SINUS RHYTHM Compared to ECG 05/21/2025 13:10:50 Sinus tachycardia no longer present /store/S0/[id number]/ecg/[id number].pdf
[2025-09-01 17:06] LABS: Basophils # (Auto) 0.0 Thou/mm3 (0.0-0.2); Basophils % (Auto) 0 % (0-2.5); Eosinophils # (Auto) 0.1 Thou/mm3 (0.0-0.5); Eosinophils % (Auto) 1 % (0-10); Hematocrit 41.9 % (36.0-46.0); Hemoglobin 13.2 g/dL (12.0-16.0); Immature Granulocytes Auto 0.03 Thou/mm3 (0.00-0.00); Lymphocytes # (Auto) 2.6 Thou/mm3 (1.0-4.8); Lymphocytes % (Auto) 30 % (10-50); Mean Corpuscular HGB Conc 31.5 g/dl (31.0-37.0); Mean Corpuscular Hemoglobin 24.4 pg (25.0-35.0); Mean Corpuscular Volume 77 fL (80-100); Monocytes # (Auto) 0.5 Thou/mm3 (0.0-0.8); Monocytes % (Auto) 6 % (0-12); Neutrophils # (Auto) 5.5 Thou/mm3 (1.8-7.7); Neutrophils % (Auto) 63 % (37-80); Nucleated Red Blood Cell # 0.00 Thou/mm3 (0.00-0.00); Nucleated Red Blood Cell % 0 /100 WBC (0); Platelet Count 334 Thou/mm3 (140-440); RDW Standard Deviation 37.9 fL (36.4-46.3); Red Blood Count 5.42 Miln/mm3 (4.00-5.20); White Blood Count 8.8 Thou/mm3 (3.6-11.0)
[2025-09-01 17:25] LABS: Collection Type, Urine Clean Catch
[2025-09-01 17:25] LABS: Alanine Aminotransferase 10 U/L (10-49); Albumin, Serum 4.5 gm/dL (3.5-5.0); Albumin/Globulin Ratio 1.2 (1.2-2.2); Alkaline Phosphatase 128 U/L (46-116); Anion Gap 13 (7-16); Aspartate Amino Transferase 13 U/L (0-34); BUN/Creatinine Ratio 14 Ratio (12-20); Bilirubin,Total 0.2 mg/dL (0.3-1.2); Blood Urea Nitrogen 10 mg/dL (9-23); Calcium 9.5 mg/dL (8.3-10.6); Calcium (Corrected) 9.5 mg/dL (8.5-10.1); Carbon Dioxide 24.1 mMol/L (20.0-31.0); Chloride 105 mMol/L (98-107); Creatinine (Component) 0.7 mg/dL (0.6-1.3); Estimated Creatinine Clearance 100.4 mL/min (>60); Globulin 3.8 gm/dL (2.3-3.5); Glucose 112 mg/dL (74-106); Magnesium 1.7 mg/dL (1.6-2.6); Osmolality,Calculated 283 (275-295); Potassium 4.0 mMol/L (3.4-5.1); Sodium 142 mMol/L (136-145); Total Protein 8.3 gm/dL (5.7-8.2); eGFR > 60 See Note
[2025-09-01 17:27] VITALS: BP 114/71; PULSE 115; RESP 22; TEMP 36.4; O2SAT 98
[2025-09-01 17:39] LABS: Bilirubin,Urine Negative (Negative); Blood,Urine Negative (Negative); Clarity,Urine Clear (Clear/Hazy); Color,Urine Lt-Yellow (Lt Yel-Yel); Glucose, Urine Negative (Negative); Hyaline Casts,Urine < 1 /hpf (0-1); Ketones,Urine Trace (Negative); Leukocyte Esterase,Urine Negative (Negative); Nitrite,Urine Negative (Negative); PH,Urine 6.0 (5.0-7.0); Protein,Urine Trace (Neg - Trace); RBC,Urine 1 /hpf (0-3); Specific Gravity,Urine 1.022 (1.001-1.035); Squamous Epithelial Cell,Urine < 1 /hpf (0-5); Urobilinogen,Urine Negative mg/dL (0.0-1.0); WBC,Urine 1 /hpf (0-5)
[2025-09-01 18:20] LABS: Influenza A Ag Negative; Influenza B Ag Negative; Strep A Rapid Negative (Negative)
[2025-09-01 18:21] LABS: COVID-19 Antigen (In-House) Negative (Negative)
[2025-09-01 18:32] VITALS: BP 104/65; PULSE 85; RESP 19; TEMP 36.7; O2SAT 97
[2025-09-01 19:28] LABS: Amphetamine/Methamp Scrn,U Negative (Negative); Barbiturate Screen,Urine Negative (Negative); Benzodiazepines Screen,Urine Negative (Negative); Benzoylecgonine Screen, Ur Negative (Negative); Fentanyl Screen,Urine Negative (Negative); Opiate Screen,Urine Negative (Negative); THC Screen,Urine Negative (Negative)
[2025-09-01 19:29] VITALS: BP 104/66; PULSE 98; RESP 20; TEMP 37.2; O2SAT 98
[2025-09-01] MEDS: levETIRAcetam LIQD 500 MG/5 ML UDC 1000 MG PO (19:29)
[2025-09-05 06:35] LABS: Levetiracetam (Keppra)* <2.0 mcg/mL (10.0-40.0)
== END 2025-09-01 19:33 | disposition home or self-care (01) ==
PROVIDERS: Physician Assistant; Emergency Provider Emergency Medicine; PCP Physician Assistant
DX: R56.9 Unspecified convulsions (principal)
CPT/HCPCS: 36415; 80053; 80177; 80307; 81001; 83735; 85025; 87502; 87651; 87811; 93005; 99283; A9270

== ENCOUNTER → 2025-09-02 | Outpatient (CLI) | payer MEDICAID, SELFPAY ==
--- NOTE | 2025-09-02 14:30 | XR_ITS ---
EXAMINATION: Thyroid sonography complete TECHNIQUE: Grayscale sonographic images thyroid lobes Date and time: September 02, 2025, 1452 hours INDICATIONS: Right thyromegaly on ultrasound thyroid May 21, 2025 FINDINGS: Right thyroid 6.1 cm Left thyroid 5.1 cm Heterogeneous appearance of both thyroid lobes although no definite thyroid nodules IMPRESSION: Thyromegaly, consider correlation with oral I121 thyroid uptake and scan
== END | disposition home or self-care (01) ==
LOC: CDIM 14:36
PROVIDERS: PCP Physician Assistant; Referring Provider Physician Assistant; Visit Provider Physician Assistant
DX: E01.0 Iodine-deficiency related diffuse (endemic) goiter (principal)
CPT/HCPCS: 76536

== ENCOUNTER 2025-09-08 12:19 | Emergency (ER) | payer MEDICAID, SELFPAY ==
[2025-09-08 12:49] VITALS: PULSE 152; RESP 18; O2SAT 98
[2025-09-08 12:52] LABS: Basophils # (Auto) 0.1 Thou/mm3 (0.0-0.2); Basophils % (Auto) 1 % (0-2.5); Eosinophils # (Auto) 0.1 Thou/mm3 (0.0-0.5); Eosinophils % (Auto) 1 % (0-10); Hematocrit 39.4 % (36.0-46.0); Hemoglobin 12.6 g/dL (12.0-16.0); Immature Granulocytes Auto 0.02 Thou/mm3 (0.00-0.00); Lymphocytes # (Auto) 3.6 Thou/mm3 (1.0-4.8); Lymphocytes % (Auto) 33 % (10-50); Mean Corpuscular HGB Conc 32.0 g/dl (31.0-37.0); Mean Corpuscular Hemoglobin 24.6 pg (25.0-35.0); Mean Corpuscular Volume 77 fL (80-100); Monocytes # (Auto) 0.7 Thou/mm3 (0.0-0.8); Monocytes % (Auto) 6 % (0-12); Neutrophils # (Auto) 6.6 Thou/mm3 (1.8-7.7); Neutrophils % (Auto) 60 % (37-80); Nucleated Red Blood Cell # 0.00 Thou/mm3 (0.00-0.00); Nucleated Red Blood Cell % 0 /100 WBC (0); Platelet Count 356 Thou/mm3 (140-440); RDW Standard Deviation 38.3 fL (36.4-46.3); Red Blood Count 5.13 Miln/mm3 (4.00-5.20); White Blood Count 11.0 Thou/mm3 (3.6-11.0)
[2025-09-08 12:53] VITALS: BMI 31.1
[2025-09-08 13:15] VITALS: BP 142/98; PULSE 110; RESP 18; TEMP 36.7; O2SAT 98
[2025-09-08] MEDS: SODIUM CHLORIDE 0.9% 1000 ML 1,000 ML 999 ML IV (13:24)
[2025-09-08] MEDS: levETIRAcetam INJ 100 MG/ML VIAL 5ML 1000 MG IVP (13:24)
[2025-09-08 13:26] LABS: Alanine Aminotransferase 11 U/L (10-49); Albumin, Serum 4.7 gm/dL (3.5-5.0); Albumin/Globulin Ratio 1.4 (1.2-2.2); Alkaline Phosphatase 147 U/L (46-116); Anion Gap 15 (7-16); Aspartate Amino Transferase 13 U/L (0-34); BUN/Creatinine Ratio 11 Ratio (12-20); Bilirubin,Total 0.3 mg/dL (0.3-1.2); Blood Urea Nitrogen 8 mg/dL (9-23); Calcium 9.2 mg/dL (8.3-10.6); Calcium (Corrected) 9.2 mg/dL (8.5-10.1); Carbon Dioxide 23.3 mMol/L (20.0-31.0); Chloride 103 mMol/L (98-107); Creatinine (Component) 0.7 mg/dL (0.6-1.3); Estimated Creatinine Clearance 109.7 mL/min (>60); Globulin 3.4 gm/dL (2.3-3.5); Glucose 113 mg/dL (74-106); Osmolality,Calculated 280 (275-295); Potassium 4.2 mMol/L (3.4-5.1); Sodium 141 mMol/L (136-145); Total Protein 8.1 gm/dL (5.7-8.2); eGFR > 60 See Note
[2025-09-08 15:09] VITALS: BP 138/93; PULSE 124; RESP 19; TEMP 36.8; O2SAT 98
[2025-09-08 15:28] LABS: Collection Type, Urine Clean Catch
[2025-09-08 15:52] LABS: HCG Qualitative,Urine Negative
[2025-09-08 15:56] LABS: Bilirubin,Urine Negative (Negative); Blood,Urine Negative (Negative); Clarity,Urine Clear (Clear/Hazy); Glucose, Urine Negative (Negative); Ketones,Urine Negative (Negative); Leukocyte Esterase,Urine Negative (Negative); Nitrite,Urine Negative (Negative); PH,Urine 6.0 (5.0-7.0); Protein,Urine Negative (Neg - Trace); RBC,Urine < 1 /hpf (0-3); Specific Gravity,Urine 1.011 (1.001-1.035); Squamous Epithelial Cell,Urine < 1 /hpf (0-5); Urobilinogen,Urine Negative mg/dL (0.0-1.0); WBC,Urine < 1 /hpf (0-5)
[2025-09-08 16:02] LABS: Amphetamine/Methamp Scrn,U Negative (Negative); Barbiturate Screen,Urine Negative (Negative); Benzodiazepines Screen,Urine Negative (Negative); Benzoylecgonine Screen, Ur Negative (Negative); Fentanyl Screen,Urine Negative (Negative); Opiate Screen,Urine Negative (Negative); THC Screen,Urine Negative (Negative)
[2025-09-08 16:03] LABS: Color,Urine Lt-Yellow (Lt Yel-Yel)
--- NOTE | 2025-09-08 17:19 | EDNOTE_ITS ---
<Statement entered by Dianna Sanchez MD - 09/08/25 17:49> As co-signing physician, I was present and available for consult prn. I concur with the plan and care as documented by the midlevel provider. ED General RME/HPI General Chief complaint: Seizure Stated complaint: SEIZURES Time Seen by Provider: 09/08/25 12:24 Arrival date/time: 09/08/25 12:19 CC: Seizure HPI history of seizures. Currently patient has no headache shortness of breath difficulty breathing. EMS reports stable vital signs. Patient states she took her Keppra this morning. Patient has no other complaints Related Data Home Medications ?Medication ?Instructions ?Recorded ?Confirmed desogestrel 0.15 mg-ethinyl 1 tab PO QDAY 08/08/20 estradiol 0.03 mg tablet (Enskyce) gabapentin 300 mg capsule 300 mg PO HS 08/20/25 levetiracetam 500 mg tablet 500 mg PO BID 08/20/25 methimazole 10 mg tablet 10 mg PO BID 08/20/25 propranolol 10 mg tablet 10 mg PO TID 08/20/25 Previous Rx's ?Medication ?Instructions ?Recorded blood pressure test kit-medium #1 ea 05/23/25 famotidine 20 mg tablet (Pepcid) 20 mg PO BID allergic reaction #20 06/07/25 tabs levetiracetam 1,000 mg tablet 1,000 mg PO BID #60 tabs 09/01/25 (Keppra) lorazepam 1 mg tablet (Ativan) 1 mg PO QDAY PRN seizur e activity 09/01/25 #10 tabs Allergies Allergy/AdvReac Type Severity Reaction Status Date / Time No Known Allergies Allergy Unknown Verified 07/14/25 13:44 Review of Systems Review of Systems Narrative Review of Systems: GEN: No fever, no chills, no weight loss EYES: No discharge, no visual changes, no pain HEENT: No ear pain, no congestion, no sore throat PULM: No shortness of breath, no cough, no congestion CV: No chest pain, no dyspnea on exertion, no palpitations GI: No nausea, no vomiting, no diarrhea, no pain, no constipation : No frequency, no urgency, no dysuria MUSC/SKEL: No joint pain, no back pain SKIN: No rash PSYCH: No hallucinations, no depression HEME/LYMPH: No easy bleeding or bruising tendencies NEURO: No weakness, no headache Past Medical History Past Medical History NEUROLOGIC: Positive Seizures and Migraine CARDIAC: Positive Cardiac Disorders; Negative Congestive Heart Failure RESPIRATORY: Positive Asthma; Negative Chronic Obstructive Pulmonary Disease (COPD) GASTROINTESTINAL: Positive Gastroesophageal Reflux Disease and Obesity GENITOURINARY: Negative Renal Disease ENT: Positive History of ENT Problems (wears glasses) ENDOCRINE: Positive Hyperthyroidism; Negative Diabetes Mellitus Type 1 or Diabetes Mellitus Type 2 HEMATOLOGIC: Negative Sickle Cell Disease PSYCHO/SOCIAL: Positive Anxiety and Attention Deficit Hyperactivity Disorder Surgical History SURGICAL: Positive Ear Surgery Social History SMOKING STATUS: Never smoker SUBSTANCE USE: does not use ED Exam Narrative Physical exam: [General: Obese not in any acute distress Head normocephalic HEENT: Within acceptable limits Neck is supple nontender Chest equal chest rise nontender to palpation Respiratory: Clear to auscultation no wheezes crackles or rubs CV: Rate rhythm is regular no murmurs rubs or clicks Abdomen is distended secondary to body habitus soft nontender no masses positive bowel sounds all 4 quadrants Back: No CVA tenderness no spinous process tenderness from cervical spine thoracic and lumbar spine Skin: Intact no petechiae rash induration ulceration or crepitus Extremities: Moving all extremity against resistance cap refill less than 2 seconds neurosensory intact Neuro: Awake alert oriented x3 Glascow coma 15 no focal deficits] Course Course Course Narrative: Patient has had no deterioration in neurologic status or repeat seizures during her visit to the emergency room this time patient be discharged home to continue on her antiseizure medicine and follow-up with her neurologist. Quality Measures none Orders Category Date Time Status Saline [Insert IV] NOW Care 09/08/25 12:24 Active CBC Stat Lab 09/08/25 12:37 Completed CMP [Comprehensive Metabolic Panel] Stat Lab 09/08/25 12:37 Completed Drug Screen,Urine Stat Lab 09/08/25 15:02 Completed HCG Qualitative,Urine Stat Lab 09/08/25 15:02 Completed Urinalysis Stat Lab 09/08/25 15:02 Completed Sodium Chloride 0.9% 1000 ml [Ns] 1,000 ml Med 09/08/25 12:25 Discontinued IV 999 mls/hr levETIRAcetam INJ [Keppra Inj] Med 09/08/25 12:24 Discontinued 1,000 mg IVP X1 ONE Vital Signs Vital signs: Vital Signs Temperature 98.1 F 09/08/25 13:15 Pulse Rate 110 H 09/08/25 13:15 Respiratory Rate 18 09/08/25 13:15 Blood Pressure 142/98 H 09/08/25 13:15 Pulse Oximetry (%) 98 09/08/25 13:15 Oxygen Delivery Method Room Air 09/08/25 13:15 Discharge Plan Plan Patient Disposition: HOME (Self Care) Patient condition on transfer: Stable Prescriptions/Referrals Prescriptions/Med Rec: No Action desogestrel-ethinyl estradiol [Enskyce] 0.15-0.03 mg tablet 1 tab PO QDAY famotidine [Pepcid] 20 mg tablet 20 mg PO BID MDD 2 Qty: 20 0RF (DME) blood pressure test kit-medium Kit See Rx Instructions .Route Qty: 1 0RF Rx Instructions: As directed gabapentin 300 mg capsule 300 mg PO HS Patient Comments: TAKE 1 CAPSULE BY ORAL ROUTE EVERY BEDTIME, SEIZURES levetiracetam 500 mg tablet 500 mg PO BID Patient Comments: TAKE 1 TABLET BY MOUTH EVERY 12 HOURS methimazole 10 mg tablet 10 mg PO BID Patient Comments: TAKE 1 TABLET BY MOUTH 3 TIMES A DAY propranolol 10 mg tablet 10 mg PO TID Patient Comments: TAKE 2 TABLETS BY MOUTH 3 TIMES A DAY lorazepam [Ativan] 1 mg tablet 1 mg PO QDAY PRN (Reason: seizure activity) Qty: 10 0RF levetiracetam [Keppra] 1,000 mg tablet 1,000 mg PO BID Qty: 60 0RF Referrals: No Primary/Family,Physician [Primary Care Provider] - In 1 week Problem List Clinical Impression: Seizure Patient/Caregiver Discharge Instructions Other Activity Instructions:: Continue take your Keppra follow-up with your neurologist if there is recurrence of these episodes return the emergency room for reevaluation. Education Materials: ED Seizure, Recurrent (Adult) Print Language: Faroese Stand Alone Forms: Deepika Award Info., Work/School Release, Patient Portal Info Letter PA/LOUNGE CAR ATTENDANT Supervising Physician PA/LOUNGE CAR ATTENDANT Supervising Physician: Jalil Pickett ENP MDM Clinical Information Provided by: patient and EMS Medical Records reviewed [facility] and EMS Meds/Rx considered, not ordered None Labs/Rad/Tests considered, not ordered None Chronic Illness/Social Conditions Explain: Seizure disorder EKG EKG not done Labs Labs: interpreted by me Lab(s) Interpretation(s): CBC shows no acute leukocytosis anemia thrombocytopenia CMP shows no significant electrolyte imbalances renal impairment transaminitis or T. bili elevation. Urine is negative for UTI UDS is negative is negative. Imaging Imaging interpretation: interpreted by tx Imaging Interpretation(s): Seizure with seizure disorder. Medication Administration(s) Medication Administration History Discontinued Medications Sodium Chloride (Ns) 1,000 mls @ 999 mls/hr IV .Q1H1M ONE Stop: 09/08/25 13:25 Last Infusion: 09/08/25 16:19 Dose: Infused Documented By: Admin: 09/08/25 13:24 Dose: 999 mls/hr Documented By: BD Levetiracetam (Levetiracetam Inj 100 Mg/Ml Vial 5ml) 1,000 mg IVP X1 ONE Stop: 09/08/25 12:25 Last Admin: 09/08/25 13:24 Dose: 1,000 mg Documented By: BD
[2025-09-08 17:32] VITALS: BP 127/80; PULSE 98; RESP 22; TEMP 36.7; O2SAT 98
== END 2025-09-08 17:34 | disposition home or self-care (01) ==
PROVIDERS: Registered Nurse General Practice; Emergency Provider Emergency Medicine
DX: R56.9 Unspecified convulsions (principal)
CPT/HCPCS: 36415; 80053; 80307; 81001; 81025; 85025; 96361; 96374; 99283; J1953; J7030